=== PATIENT | female | born 1945 | race Caucasian/White ===

== ENCOUNTER 2016-03-26 03:40 | Emergency (ER) ==
[2016-03-26] MEDS ORDERED: XANAX PO ONE ×2 (04:08→04:30)
--- NOTE | 2016-03-26 04:15 | PROVIDER DOCUMENTATION ---
HPI-General Adult - General Chief Complaint: B/P Problems Stated Complaint: elevated bp Time Seen by Provider: 03/26/16 03:48 Source: patient, EMS Allergies/Adverse Reactions: Patient Allergies Allergy/AdvReac Type Severity Reaction Status Date / Time iodine Allergy Severe ANAPHYLAXIS Verified 03/26/16 03:50 codeine [Codeine] Allergy Unknown unknown Verified 03/26/16 03:50 Penicillins Allergy Unknown unknown Verified 03/26/16 03:50 Tetanus Vaccines and Toxoid Allergy Unknown Unknown Verified 03/26/16 03:50 [Tetanus] - History of Present Illness -Gen Adult Nature of Presenting Problems: pt is concerned about her BP. She was noted to have elevated BP at a recent doctor visit and has been monitoring it since. She has noticed that it has been slightly elevated on several occasions. Tonight she checked it and it was about 200 so came to get checked. She has a very mild headache. She feels stressed out and has difficulty sleeping and feels like she can't get enough air. No chest pain. No Nausea. No numbness or weakness. No changes in vision. No leg swelling Review of Systems - Adult - REVIEW OF SYSTEMS - ADULT Constitutional: denies: chills, fever Eyes: denies: discharge, decreased vision, blurred vision, double vision Ears, Nose, Mouth & Throat: denies: ear pain, sinus problem Cardiovascular: reports: palpitations. denies: chest pain, edema Respiratory: reports: shortness of breath. denies: cough, hemoptysis, pleurisy , wheezing Gastrointestinal: denies: abdominal pain, hematemesis, diarrhea, nausea, rectal bleeding, vomiting Integumentary: denies: rash Neurological: denies: headache/migraines, numbness, paresthesia, slurred speech All Other Systems: Reviewed and Negative Past History - Adult - PAST MEDICAL HISTORY-ADULT Review of Records: reports: Old Records Reviewed, Nursing Assessment Review, Medications Reviewed, Social history reviewed & non-contributory. Major Childhood Illnesses: reports: denies history Cardiovascular: reports: denies history Respiratory: reports: denies history Gastrointestinal: reports: denies history Obstetrical/Gynecological: reports: denies history Genitourinary: reports: denies history Musculoskeletal: reports: denies history Neurological: reports: denies history Endocrine/Immune: reports: denies history Other Conditions: reports: denies history - FAMILY HISTORY Family History: reviewed, not pertinent Physical Exam-General - PHYSICAL EXAM-ADULT Initial Vital Signs Reviewed: Yes - CONSTITUTIONAL General Appearance: appears well, alert, no apparent distress - EYES Eyes: pink conjunctivae. negative: scleral icterus - HEAD, EARS, NOSE, MOUTH & THROAT HENMT: normocephalic/atraumatic, pharynx normal - NECK Neck: non-tender, full range of motion, supple, normal inspection - RESPIRATORY Respiratory: chest non-tender, lungs clear, normal breath sounds, no pleuratic chest pain, no respiratory distress, no accessory muscle use - CARDIOVASCULAR Cardiovascular: regular rate, rhythm, no edema, no murmur - GASTROINTESTINAL (ABDOMEN) Abdominal Exam: normal bowel sounds, non tender, soft, no organomegaly, no pulsatile mass - MUSCULOSKELETAL Back Exam: no CVA tenderness, no vertebral tenderness, CVA tenderness Extremity: non-tender, normal inspection, no pedal edema, no calf tenderness - SKIN Integumentary: normal color, normal turgor, warm/dry - NEUROLOGIC Neurologic: rehabilitation medicine physician II-XII nml as tested, grossly normal, no motor/sensory deficits - PSYCHIATRIC Psych/Mental Status: normal mood/affect, normal thought content, normal thought process, oriented x 3 Progress - PLAN OF CARE/RESULTS Progress/Plan/Lab Results: Laboratory Tests 03/26/16 03/26/16 03/26/16 04:13 04:13 04:13 WBC 5.95 RBC 4.23 Hgb 12.1 Hct 38.8 MCV 91.7 MCH 28.6 MCHC 31.2 L RDW Std Deviation 18.7 H Plt Count 266 MPV 10.6 H Immature Gran % (Auto) 0.0 Neut % (Auto) 76.0 H Lymph % (Auto) 13.[address] [place] % (Auto) 7.7 Eos % (Auto) 2.2 Baso % (Auto) 0.2 Immature Gran # (Auto) 0.00 Neut # (Auto) 4.52 Lymph # (Auto) 0.[address] [place] # (Auto) 0.46 Eos # (Auto) 0.13 Baso # (Auto) 0.01 Sodium 141 Potassium 3.6 Chloride 106 Carbon Dioxide 21 L Anion Gap 14 BUN 11 Creatinine 0.8 Estimated GFR/1.73 m2 > 60 BUN/Creatinine Ratio 14 Glucose 104 Calculated Osmolality 281 Calcium 9.1 Total Bilirubin 0.23 AST 15 ALT 12 Alkaline Phosphatase 186 H Troponin T < 0.010 Total Protein 6.7 Albumin 3.9 Globulin 2.8 Albumin/Globulin Ratio 1.4 Orders Category Date Time Status CHEST-2 VIEWS [RAD] Stat Exams 03/26/16 04:15 Taken CBC WITH ELECTRONIC DIFF [HEME] Stat Lab 03/26/16 04:13 Completed CMP [COMPREHENSIVE METABOLIC PANEL] [CHEM] Stat Lab 03/26/16 04:13 Completed TROPONIN T Stat Lab 03/26/16 04:13 Completed Alprazolam [Xanax] Med 03/26/16 04:30 Discontinued 0.25 mg PO NOW ONE EKG [EKG] Stat Ther 03/26/16 03:49 Ordered Vital Signs Temp Pulse Resp BP Pulse Ox 03/26/16 03:50 98.1 F 69 16 189/87 99 iodine Allergy (Severe, Verified 03/26/16 03:50) ANAPHYLAXIS codeine [Codeine] Allergy (Unknown, Verified 03/26/16 03:50) unknown Penicillins Allergy (Unknown, Verified 03/26/16 03:50) unknown Tetanus Vaccines and Toxoid [Tetanus] Allergy (Unknown, Verified 03/26/16 03:50) Unknown Iron Carbonyl/Ascorbic Acid [Icar-C] 1 each PO BID #60 tablet 02/25/16 Omeprazole [Prilosec] 40 mg PO DAILY@0700 #30 capsule 02/25/16 Laboratory 03/26/16 03/26/16 03/26/16 04:13 04:13 04:13 WBC 5.95 RBC 4.23 Hgb 12.1 Hct 38.8 MCV 91.7 MCH 28.6 MCHC 31.2 L RDW Std Deviation 18.7 H Plt Count 266 MPV 10.6 H Immature Gran % (Auto) 0.0 Neut % (Auto) 76.0 H Lymph % (Auto) 13.[address] [place] % (Auto) 7.7 Eos % (Auto) 2.2 Baso % (Auto) 0.2 Immature Gran # (Auto) 0.00 Neut # (Auto) 4.52 Lymph # (Auto) 0.[address] [place] # (Auto) 0.46 Eos # (Auto) 0.13 Baso # (Auto) 0.01 Sodium 141 Potassium 3.6 Chloride 106 Carbon Dioxide 21 L Anion Gap 14 BUN 11 Creatinine 0.8 Estimated GFR/1.73 m2 > 60 BUN/Creatinine Ratio 14 Glucose 104 Calculated Osmolality 281 Calcium 9.1 Total Bilirubin 0.23 AST 15 ALT 12 Alkaline Phosphatase 186 H Troponin T < 0.010 Total Protein 6.7 Albumin 3.9 Globulin 2.8 Albumin/Globulin Ratio 1.4 - EKG 1 Time of EKG reading by physician:: 04:14 EKG Interpretation (*Must complete 3 of following elements*): Normal Rate: 68 Rhythm: sinus [place]: normal QRS: normal [place] Interval: normal ST Wave: normal - XRAY 1 XRAY Study: Chest Impression: Abnormal (mild cardiomegaly, COPD) Departure - Departure Time of Disposition Order: 05:03 DIAGNOSIS: Hypertension Qualifiers: Hypertension type: essential hypertension Qualified Code(s): I10 - Essential ( primary) hypertension Disposition: HOME 01 Certified Medical Emergency: Emergent Condition: Good Additional Instructions: quit smoking, take a clonidine BP pill if your top number is over 180 and give it 2 hours to work. Follow up with your physician as scheduled and continue to check your BP once a day ED Follow Up Instructions: You have been treated by a care provider in the Emergency Department. These instructions are being provided to you so you can have an understanding of how to care for yourself upon discharge. Upon discharge from the Emergency Department, you are responsible for making arrangements for follow-up care by a physician of your choice. Take all prescribed medications as directed. Return to the Emergency Department immediately for any new or worsening symptoms. You may call the Physician Referral phone number at [phone] to obtain a list of Physicians who are taking new patients. Prescriptions: Clonidine HCl 0.1 mg PO TID PRN #30 tablet PRN Reason: hypertension
[2016-03-26 04:25] LABS: MANUAL DIFF NEEDED? NO
[2016-03-26 04:27] LABS: BASO% 0.2 % (0.0-0.8); EOS# 0.13 X1000 (0.0-0.7); EOS% 2.2 % (0.0-10.0); HEMATOCRIT 38.8 % (37.0-47.0); HEMOGLOBIN 12.1 g/dL (12.0-16.0); LYMPH# 0.83 X1000 (1.2-3.4); LYMPH% 13.9 % (20.5-51.1); MCH 28.6 PG (27-31); MCHC 31.2 g/dL (33-37); MCV 91.7 FL (81-99); MONO# 0.46 X1000 (0.11-0.59); MONO% 7.7 % (1.7-9.3); MPV 10.6 FL (7.4-10.4); PLT 266 X1000 (130-400); RBC 4.23 XMIL (4.2-5.4)
[2016-03-26 04:50] LABS: AGAP 14; ALBUMIN 3.9 g/dL (3.5-5.0); ALKALINE PHOSPHATASE 186 U/L (32-104); BUN 11 mg/dL (8-22); CALCIUM 9.1 mg/dL (8.8-10.2); CHLORIDE 106 mmol/L (98-107); COSMO 281; GOT 15 U/L (10-30); GPT 12 U/L (10-36); POTASSIUM 3.6 mmol/L (3.5-5.1); SODIUM 141 mmol/L (136-145); TCO2 21 mmol/L (25-35); TOTAL BILIRUBIN 0.23 mg/dL (0.20-1.00); TOTAL PROTEIN 6.7 g/dL (6.3-8.3)
[2016-03-26 05:50] VITALS: BP 163/81
--- NOTE | 2016-03-26 07:32 | Diag Imaging Result Document ---
PROCEDURE NAME: CHEST-2 VIEWS - 03/26/2016 CHEST X-RAY, 2 VIEWS: COMPARISON: 02/23/2016. FINDINGS: The lungs are normally expanded and clear. Heart size and mediastinal contours are normal. No pneumothorax or pleural effusion. IMPRESSION: Negative exam.
== END 2016-03-26 05:50 | disposition home or self-care (01) ==
LOC: EDBD → ED 03:40
DX: I10 Essential (primary) hypertension (principal); R51 Headache; R00.2 Palpitations; R06.02 Shortness of breath; Z79.899 Other long term (current) drug therapy
CPT/HCPCS: 71020; 80053; 84484; 85025; 93005; 99283

== ENCOUNTER 2018-10-31 17:52 | Inpatient (IN) ==
--- NOTE | 2018-10-31 18:47 | Diag Imaging Result Doc PS360 ---
CHEST-2 VIEWS - 10/31/2018 INDICATION: cough congestion fever x 4-5 days COMPARISON: None FINDINGS: There is advanced COPD. No infiltrates or edema. No pneumothorax or pleural effusion. Heart size and pulmonary vascularity is normal. No compression fractures in the spine. IMPRESSION: Advanced COPD. Electronically signed by Rajesh Hernandez 10/31/2018 6:44 PM
[2018-10-31 19:43] LABS: OCCULT BLOOD 1 NEGATIVE (NEGATIVE)
[2018-10-31 20:06] LABS: BASO# 0.04 X1000 (0.0-0.2); BASO% 0.4 % (0.0-0.8); EOS# 0.08 X1000 (0.0-0.7); EOS% 0.8 % (0.0-10.0); HEMATOCRIT 23.7 % (37.0-47.0); IMM GRAN# 0.04 X1000 (0.0-0.04); IMM GRAN% 0.4 % (0.0-0.5); LYMPH# 1.11 X1000 (1.2-3.4); LYMPH% 10.9 % (20.5-51.1); MCH 16.7 PG (27-31); MCHC 24.9 g/dL (33-37); MCV 66.9 FL (81-99); MONO# 0.58 X1000 (0.11-0.59); MONO% 5.7 % (1.7-9.3); MPV 9.8 FL (7.4-10.4); NEUT# 8.34 X1000 (1.4-6.5); NEUT% 81.8 % (42.2-75.2); PLT 571 X1000 (130-400); RBC 3.54 XMIL (4.2-5.4); RDW 22.7 % (11.5-14.5); WBC 10.19 X1000 (4.8-10.8)
[2018-10-31 20:25] LABS: ALBUMIN 4.1 g/dL (3.5-5.0); CALCIUM 8.6 mg/dL (8.8-10.2); POTASSIUM 2.7 mmol/L (3.5-5.1); TOTAL BILIRUBIN 0.2 mg/dL (0.20-1.00); TOTAL PROTEIN 7.3 g/dL (6.3-8.3)
--- NOTE | 2018-10-31 20:41 | PROVIDER DOCUMENTATION ---
This chart was entered by Sherrill Patterson Scribe, acting as scribe for Rio Ontiveros MD. HPI-Respiratory General - General Chief Complaint: Cough Stated Complaint: COUCHING & BACK PAIN Time Seen by Provider: 10/31/18 19:40 Source: patient Allergies/Adverse Reactions: Patient Allergies Allergy/AdvReac Type Severity Reaction Status Date / Time Penicillins AdvReac HIVES Verified 10/31/18 18:07 Home Medications: Home Medication List Medication Instructions Recorded Confirmed Last Taken Type Unobtainable [Home Meds 10/31/18 10/31/18 Unknown History Unobtainable] - History of Present Illness-Resp Nature of Presenting Problem: 73yof presents to ED cc cough, hoarseness and diarrhea. Pt reports she has been having issues for a long time but her was on Hospice and she couldn't le ave him but he last week. Pt is A&Ox3 and nontoxic in appearance. Quality of Pain: reports: none Severity in ED: reports: mild Onset/Duration: reports: gradual Timing: reports: still present Cough Quality/Degree: reports: dry cough Episode Frequency: frequent episodes Current Respiratory Medication Therapy: Initiated see nurses note Modifying Factors: improves with: nothing Associated Symptoms: reports: cough Similar Symptoms Previously?: Yes Recently seen or treated by another doctor?: No Review of Systems - Adult - REVIEW OF SYSTEMS - ADULT Constitutional: reports: see HPI, fatique. denies: chills, fever Eyes: reports: no symptoms reported Ears, Nose, Mouth & Throat: reports: see HPI, hoarseness. denies: throat pain Cardiovascular: reports: no symptoms reported Respiratory: reports: see HPI, chronic cough. denies: shortness of breath, wheezing Gastrointestinal: reports: see HPI, diarrhea. denies: abdominal pain, nausea, vomiting Genitourinary: reports: no symptoms reported Musculoskeletal: reports: no symptoms reported Integumentary: reports: no symptoms reported Neurological: reports: no symptoms reported Psychiatric: reports: no symptoms reported Endocrine: reports: no symptoms reported Hematologic/Lymphatic: reports: no symptoms reported Allergic/Immunologic: reports: no symptoms reported All Other Systems: Reviewed and Negative Past History - Adult - PAST MEDICAL HISTORY-ADULT Review of Records: reports: Nursing Assessment Review, Medications Reviewed, Social history reviewed & non-contributory. Major Childhood Illnesses: reports: denies history Cardiovascular: reports: denies history Respiratory: reports: denies history Gastrointestinal: reports: denies history Obstetrical/Gynecological: reports: denies history Genitourinary: reports: denies history Musculoskeletal: reports: denies history Neurological: reports: denies history Endocrine/Immune: reports: denies history Other Conditions: reports: denies history - IMMUNIZATION STATUS Childhood Immunizations: See Nurse Assessment Flu Vaccine: See Nurse Assessment - FAMILY HISTORY Family History: reviewed, not pertinent - SOCIAL HISTORY Smoking: cigarettes, greater than 1 pack/day Provider spent 3-5 mins advising pt. on dangers of tobacco.: Discussed manners to quit use, and f/u contacts for add'l counseling. Physical Exam-General - PHYSICAL EXAM-ADULT Initial Vital Signs Reviewed: Yes - CONSTITUTIONAL General Appearance: appears well, alert, no apparent distress, thin. negative: anxious, combative - EYES Eyes: PERRL/EOMI, pale conjunctivae. negative: pink conjunctivae (very white), photophobia - HEAD, EARS, NOSE, MOUTH & THROAT HENMT: normocephalic/atraumatic, moist mucous membranes, hearing deficit (menieres disease), other (uvula, midline; perlech in both corners of mouth; beefy/red/slick tongue) - NECK Neck: non-tender, full range of motion, supple, normal inspection. negative: C-spine tenderness - RESPIRATORY Respiratory: chest non-tender, lungs clear, normal breath sounds, no pleuratic chest pain, no respiratory distress, no accessory muscle use. negative: crackles, rales, rhonchi, stridor, wheezing - CARDIOVASCULAR Cardiovascular: normal peripheral pulses, regular rate, rhythm, no edema, no gallop, no JVD, no murmur. negative: bradycardia, tachycardia - GASTROINTESTINAL (ABDOMEN) Abdominal Exam: normal bowel sounds, non tender, soft, no organomegaly, no pulsatile mass. negative: distended, guarding, rigid, rebound, tenderness, hernia, mass - LYMPHATIC Lymphatic: no adenopathy. negative: enlargement, striations, streaking - MUSCULOSKELETAL Back Exam: normal inspection, no CVA tenderness, no vertebral tenderness. negative: ecchymosis, swelling Extremity: normal range of motion, non-tender, normal gait, normal inspection, no pedal edema, no calf tenderness, normal capillary refill, pelvis stable. negative: deformity, erythema - SKIN Integumentary: normal color, normal turgor, warm/dry. negative: cyanosis, diaphoresis, ecchymosis, erythema, jaundice, rash - NEUROLOGIC Neurologic: import clerk II-XII nml as tested, grossly normal, no motor/sensory deficits. negative: facial droop, focal weakness, motor weakness, sensory deficit - PSYCHIATRIC Psych/Mental Status: normal mood/affect, normal thought content, normal thought process, oriented x 3. negative: disoriented x 3, anxious, disheveled, depressed affect Progress - PLAN OF CARE/RESULTS Progress/Plan/Lab Results: Vital Signs - 8 hr 10/31/18 18:01 Pulse Rate 107 H Respiratory Rate 18 Blood Pressure 148/72 O2 Sat by Pulse Oximetry 99 Laboratory Results - last 24 hr 10/31/18 10/31/18 10/31/18 19:30 19:47 19:47 WBC 10.19 RBC 3.54 L Hgb 6.0 L Hct 23.7 L MCV 66.9 L MCH 16.7 L MCHC 24.9 L RDW Std Deviation 22.7 H Plt Count 571 H MPV 9.8 Immature Gran % (Auto) 0.4 Neut % (Auto) 81.8 H Lymph % (Auto) 10.9 L [place] % (Auto) 5.7 Eos % (Auto) 0.8 Baso % (Auto) 0.4 Immature Gran # (Auto) 0.04 Neut # (Auto) 8.34 H Lymph # (Auto) 1.11 L [place] # (Auto) 0.58 Eos # (Auto) 0.08 Baso # (Auto) 0.04 Segmented Neutrophils Not Reportable Sodium 137 Potassium 2.7 L Chloride 98 Carbon Dioxide 25 Anion Gap 14 BUN 8 Creatinine 1.0 H Estimated GFR/1.73 m2 55 BUN/Creatinine Ratio 8 Glucose 102 Calculated Osmolality 272 Calcium 8.6 L Total Bilirubin 0.20 AST 16 ALT 8 L Alkaline Phosphatase 190 H Total Protein 7.3 Albumin 4.1 Globulin 3.0 Albumin/Globulin Ratio 1.0 Stool Occult Blood NEGATIVE Orders Category Date Time Status CHEST-2 VIEWS [RAD] Stat Exams 10/31/18 18:08 Completed CBC WITH ELECTRONIC DIFF [HEME] Stat Lab 10/31/18 19:47 Completed COMPREHENSIVE METABOLIC PANEL [CHEM] Stat Lab 08/12/19 19:47 Completed OCCULT BLOOD DIAG 1-[address] Stat Lab 10/31/18 19:30 Completed Transfer/Admit Order [TRANSFER] Routine Transfer 10/31/18 20:36 Ordered Result Diagrams: 10/31/18 19:47 10/31/18 19:47 - XRAY 1 XRAY: Bilateral XRAY Study: Chest Impression: See EMR Report (IMPRESSION: Advanced COPD. Electronically signed by Rajesh Hernandez 10/31/2018 6:44 PM) Departure - Departure Date of Disposition Decision: 10/31/18 Time of Disposition Decision: 20:40 DIAGNOSIS: Anemia Disposition: ADMITTED INPATIENT 09 Certified Medical Emergency: Emergent Condition: Stable Additional Freetext Instructions: ED Follow Up Instructions: You have been treated by a care provider in the Emergency Department. These instructions are being provided to you so you can have an understanding of how to care for yourself upon discharge. Upon discharge from the Emergency Department, you are responsible for making arrangements for follow-up care by a physician of your choice. Take all prescribed medications as directed. Return to the Emergency Department immediately for any new or worsening symptoms. You may call the Physician Referral phone number at [phone] to obtain a l ist of Physicians who are taking new patients. Referrals and Follow-Ups: None,PCP [Primary Care Provider] - - Critical Care Note This patient required my direct & personal management of CC.: No Attestation - Physician/ ANA Attestation Patient care was provided by Advanced Practice Provider:: No The physician spent face to face time with patient:: Yes Advanced Practice Provider documentation review:: Supervising physician onsite and consulted in the evaluation and care of this patient. The physician did have a face to face encounter with the patient. This chart was documented by the indicated scribe, (Sherrill Patterson Scribe) and accurately reflects the services I performed and decisions made by me, Rio Ontiveros MD, as attested by the provider's signature.
[2018-10-31] MEDS ORDERED: NS 1,000 ML IV ONE (21:27)
[2018-10-31 21:58] LABS: IRON SATURATION 4 %; TIBC 325 ug/dL; TOTAL IRON 12 ug/dL (49-151); UNBOUND IRON 313 ug/dL (112-346)
[2018-10-31] MEDS: DUONEB (A & A) INH SCH (22:58)
[2018-11-01 01:22] LABS: BILIRUBIN URINE NEGATIVE (NEGATIVE); BLOOD URINE NEGATIVE (NEGATIVE); CLARITY CLEAR (CLEAR); COLOR YELLOW; GLUCOSE URINE NEGATIVE (NEGATIVE); KETONE URINE NEGATIVE (NEGATIVE); LEUKOCYTES URINE NEGATIVE (NEGATIVE); NITRITE URINE NEGATIVE (NEGATIVE); PH URINE 6.5; PROTEIN URINE NEGATIVE (NEGATIVE); SP GRAVITY URINE 1.005; UROBILINOGEN URINE NORMAL
[2018-11-01 01:23] LABS: URINE BACTERIA NEGATIVE /HFP; URINE EPITHELIAL CELLS <10 /HPF (<10); URINE RBC <10 /HPF (<10); URINE SOURCE CLEAN CATCH; URINE WBC <10 /HPF (<10)
[2018-11-01] MEDS: DUONEB (A & A) INH SCH ×6 (02:44→22:59)
[2018-11-01] MEDS: TYLENOL PO PRN ×2 (07:44→14:57)
[2018-11-01 07:53] LABS: AGAP 11; ALBUMIN 3.8 g/dL (3.5-5.0); ALKALINE PHOSPHATASE 171 U/L (32-104); BUN 7 mg/dL (8-22); CALCIUM 8.1 mg/dL (8.8-10.2); CHLORIDE 103 mmol/L (98-107); COSMO 277; CREATININE 0.9 mg/dL (0.5-0.9); ESTIMATED GFR > 60; GLUCOSE 96 mg/dL (70-104); GOT 17 U/L (10-30); GPT 7 U/L (10-36); POTASSIUM 2.9 mmol/L (3.5-5.1); SODIUM 140 mmol/L (136-145); TCO2 26 mmol/L (25-35); TOTAL PROTEIN 6.5 g/dL (6.3-8.3)
[2018-11-01] MEDS ORDERED: DUONEB (A & A) INH PRN (08:39)
[2018-11-01] MEDS ORDERED: ZOFRAN IV PRN (08:39)
[2018-11-01] MEDS ORDERED: TYLENOL PO PRN (08:39)
[2018-11-01] MEDS: ROCEPHIN 1 GM in NS 50 ML IV SCH (08:58)
[2018-11-01 09:20] LABS: HEMOGLOBIN 6.5 g/dL (12.0-16.0); MCH 17.8 PG (27-31); MCV 68.5 FL (81-99); MPV 10.1 FL (7.4-10.4); RBC 3.65 XMIL (4.2-5.4); RDW 22.4 % (11.5-14.5); WBC 6.31 X1000 (4.8-10.8)
--- NOTE | 2018-11-01 10:23 | HISTORY AND PHYSICAL ---
PRIMARY CARE PHYSICIAN: None. CHIEF COMPLAINT: Fatigue, no energy, shortness of breath, some diarrhea and a cough that have been present for some time and have progressively worsened. HISTORY OF PRESENTING ILLNESS: This is a 73-year-old female who presents to [facility] ER with complaints of generalized weakness, fatigue, no energy, some mild shortness of breath, diarrhea that have been present for quite a while, but she states that her was on hospice care and she had been taking care of him, but that he passed last week, and the day after his is when the symptoms really worsened and she came in for evaluation. When she arrived, her hemoglobin was noted to be 6, hematocrit 23.7. Her stool for occult blood was negative and she denies any black or tarry stools. Her potassium was also noted to be 2.7. Her iron studies showed iron of 12, a TIBC of 325, so she was admitted for further evaluation and treatment. PAST MEDICAL HISTORY: A bleeding stomach ulcer. PAST SURGICAL HISTORY: Cholecystectomy and hysterectomy. FAMILY HISTORY: Reviewed and noncontributory. SOCIAL HISTORY: She is currently living alone, smokes a half a pack of cigarettes a day and has done so for the past 25 years, and denies any alcohol or illicit drug use. ALLERGIES: Penicillin. HOME MEDICATIONS: She does not take any medications on a routine basis. LABORATORY DATA: Showed a white blood cell count of 10.19, hemoglobin 6.0, hematocrit 23.7, platelets 571,000. Sodium 137, potassium 2.7, chloride 98, CO2 25, BUN of 8, creatinine 1, glucose 102. Iron of 12, TIBC 325. Urinalysis was negative. Stool for occult blood was negative. Chest x-ray showed advanced COPD. REVIEW OF SYSTEMS: She denied any fever, chills, blurred vision, dizziness. She was positive for generalized weakness, fatigue no energy, shortness of breath, cough. Denied any abdominal pain, constipation. She did have some diarrhea, denied any burning or hurting with urination. PHYSICAL EXAMINATION: VITAL SIGNS: On arrival, she had a temperature of 98.5 degrees, pulse 107, respirations 18, blood pressure 148/72, and she was saturating 99% on room air. GENERAL: This is a 73-year-old female who is lying in the bed and answers questions appropriately. HEENT: Normocephalic, atraumatic. Normal ENT inspection. Oropharynx and nares are clear. EYES: Pupils are equal, round, and reactive to light and accommodation. Extraocular movements are intact. NECK: Normal inspection. Normal range of motion. LUNGS: Clear to auscultation bilaterally with equal lung expansion and chest wall movement. HEART: With regular rate and rhythm. No murmurs, rubs, or gallops. ABDOMEN: Soft, nontender, nondistended. Bowel sounds are present x4 quadrants. MUSCULOSKELETAL: She had 5/5 strength x4 extremities. NEUROLOGICAL: The cranial nerves 2-12 appear grossly intact. ASSESSMENT: 1. Iron deficiency anemia. 2. Hypokalemia. 3. Tobacco abuse. 4. Acute chronic obstructive pulmonary disease exacerbation PLAN: She was admitted to the medical unit. She was transfused with 1 unit of packed red blood cells. We will rechecking a CBC this morning to see if she will require any further blood transfusions. She was placed on a regular diet, DuoNeb q.4 hours and q.2 p.r.n., Rocephin 1 gram IV q.24., and we will recheck a CBC and BMP in the a.m. and further orders after seen by attending. Dictated by KRUNAL Landon for Jack Zhang MD cc: KRUNAL Landon MD
[2018-11-01] MEDS: ZOFRAN IV PRN (14:57)
[2018-11-01] MEDS: ROBITUSSIN PO PRN ×2 (15:25→20:35)
[2018-11-01] MEDS ORDERED: NS 500 ML IV ONE (17:43)
--- NOTE | 2018-11-01 19:00 | HISTORY AND PHYSICAL ---
ADDENDUM: Patient seen and examined by myself. Full note dictated and discussed with nurse practitioner. Patient presented to the hospital with cough and shortness of breath. She was noted to have anemia. We will attempt to type, cross, and transfuse. We will follow her blood pressures. She is heme negative, so it certainly does not appear as though she is bleeding. We will continue to follow. cc: Jack Zhang MD
[2018-11-01] MEDS ORDERED: KLOR-CON PO ONE (20:14)
[2018-11-01] MEDS: NORCO-5 PO PRN (20:35)
[2018-11-02] MEDS: NORCO-5 PO PRN ×3 (00:38→20:59)
[2018-11-02] MEDS: DUONEB (A & A) INH SCH ×6 (02:57→23:48)
[2018-11-02 05:30] LABS: BASO% 0.5 % (0.0-0.8); EOS% 1.8 % (0.0-10.0); HEMATOCRIT 26.2 % (37.0-47.0); HEMOGLOBIN 7.2 g/dL (12.0-16.0); IMM GRAN% 0.4 % (0.0-0.5); LYMPH% 20.6 % (20.5-51.1); MCH 19.2 PG (27-31); MCHC 27.5 g/dL (33-37); MCV 69.9 FL (81-99); MONO% 9.8 % (1.7-9.3); MPV 10.2 FL (7.4-10.4); NEUT% 66.9 % (42.2-75.2); PLT 432 X1000 (130-400); RBC 3.75 XMIL (4.2-5.4); RDW 22.5 % (11.5-14.5); WBC 5.49 X1000 (4.8-10.8)
[2018-11-02 05:31] LABS: BASO# 0.03 X1000 (0.0-0.2); IMM GRAN# 0.02 X1000 (0.0-0.04); LYMPH# 1.13 X1000 (1.2-3.4); MONO# 0.54 X1000 (0.11-0.59); NEUT# 3.67 X1000 (1.4-6.5)
[2018-11-02 06:15] LABS: CALCIUM 8.1 mg/dL (8.8-10.2); POTASSIUM 3.1 mmol/L (3.5-5.1)
[2018-11-02] MEDS ORDERED: KLOR-CON PO ONE (06:59)
[2018-11-02] MEDS ORDERED: ZOFRAN IV PRN (08:27)
[2018-11-02] MEDS ORDERED: TYLENOL PO PRN (08:27)
[2018-11-02] MEDS: ROCEPHIN 1 GM in NS 50 ML IV SCH (09:09)
[2018-11-02] MEDS: SOLU-MEDROL IV SCH ×2 (09:10→17:19)
--- NOTE | 2018-11-02 09:37 | Diag Imaging Result Doc PS360 ---
CHEST-2 VIEWS - 11/02/2018 INDICATION: hypoxia COMPARISON: 10/31/2018 FINDINGS: Heart size is mildly enlarged. Pulmonary vascularity is top normal. Stable hyperexpanded lungs. No infiltrates or edema. No pneumothorax or pleural effusion. IMPRESSION: Mild cardiomegaly. COPD. Electronically signed by Rajesh Hernandez 11/02/2018 9:35 AM
[2018-11-02] MEDS: ROBITUSSIN PO PRN ×2 (17:19→20:59)
[2018-11-02] MEDS: ZOFRAN IV PRN (17:19)
--- NOTE | 2018-11-02 19:01 | PROGRESS NOTE ---
DATE: 11/02/2018 SUBJECTIVE: The patient notes overall that she is feeling okay. She is still very tired, fatigued, has a cough and occasional congestion. She is unable to get out of bed without assistance currently. OBJECTIVE: Temperature, she is afebrile. Vital signs stable. Blood pressure is stable, respiratory 20.General: Patient is very pleasant. She is in no respiratory distress. HEENT: Normocephalic. Neck: Supple. Cardiovascular: Regular rate. Chest: Clear. Abdomen: Soft, nondistended. Extremities: Moves all extremities. Neurologic: No changes. ASSESSMENT/PLAN: 1. Iron deficiency anemia. Hemoglobin and hematocrit is more stable at 7 and 26. 2. Hypokalemia. Potassium is 3.2. We will continue to replace. 3. Chronic tobacco abuse. 4. Chronic obstructive pulmonary disease with exacerbation. We will add steroids, breathing treatments, and continue oxygen. Check a chest x-ray. 5. Adult failure to thrive with generalized weakness. We will get physical therapy involved and follow. cc: Jack Zhang MD
[2018-11-03] MEDS: SOLU-MEDROL IV SCH ×3 (00:26→16:01)
[2018-11-03] MEDS: ROBITUSSIN PO PRN (02:35)
[2018-11-03] MEDS: DUONEB (A & A) INH SCH ×6 (03:38→23:02)
[2018-11-03] MEDS: ROCEPHIN 1 GM in NS 50 ML IV SCH (09:12)
[2018-11-03] MEDS: NORCO-5 PO PRN (16:01)
--- NOTE | 2018-11-03 18:52 | PROGRESS NOTE ---
DATE: 11/03/2018 SUBJECTIVE: Patient notes that breathing mares she is doing better, although she is still very weak and fatigued. She is not able to get out of bed without any assistance. OBJECTIVE: Vital signs: Temperature 98, pulse 100, respiratory rate 18, BP 162/85. General: Patient is very pleasant. She is currently in no respiratory distress. HEENT: Normocephalic. Neck: Supple. Cardiovascular: Regular rate. Chest: Clear. Abdomen: Soft. Extremities: Moves all extremities. Neurologic: No focal changes. ASSESSMENT: 1. Chronic obstructive pulmonary disease with mild exacerbation. 2. Adult failure to thrive. 3. Anemia of chronic disease, improved. 4. Hypokalemia, resolved. 5. Chronic tobacco abuse. 6. Chronic situational anxiety and depression. PLAN: We will continue patient in the hospital. Continue physical therapy. I expect that she will need rehab, which she should be ready for tomorrow. We will wean her steroids. Further orders as needed. cc: Jack Zhang MD
[2018-11-04] MEDS: SOLU-MEDROL IV SCH ×2 (00:14→07:59)
[2018-11-04] MEDS: DUONEB (A & A) INH SCH ×3 (04:29→11:20)
[2018-11-04 06:45] LABS: HEMATOCRIT 27.6 % (37.0-47.0); HEMOGLOBIN 7.3 g/dL (12.0-16.0); MCH 18.9 PG (27-31); MCHC 26.4 g/dL (33-37); MCV 71.5 FL (81-99); MPV 10.7 FL (7.4-10.4); RBC 3.86 XMIL (4.2-5.4); RDW 23.6 % (11.5-14.5); WBC 10.9 X1000 (4.8-10.8)
[2018-11-04 06:54] LABS: ALBUMIN 3.6 g/dL (3.5-5.0); CALCIUM 8.5 mg/dL (8.8-10.2); CREATININE 1.1 mg/dL (0.5-0.9); MAGNESIUM 1.8 mg/dL (1.5-2.7); POTASSIUM 3.9 mmol/L (3.5-5.1); TOTAL BILIRUBIN 0.2 mg/dL (0.20-1.00); TOTAL PROTEIN 6.2 g/dL (6.3-8.3)
[2018-11-04 07:51] VITALS: BP 126/62
[2018-11-04] MEDS ORDERED: OMNICEF PO SCH (09:00)
--- NOTE | 2018-11-04 11:09 | DISCHARGE SUMMARY ---
ADMISSION DATE: 11/01/2018 DISCHARGE DATE: 11/04/2018 PRIMARY CARE PHYSICIAN: None. ADMISSION DIAGNOSES: 1. Iron deficiency anemia. 2. Hypokalemia. 3. Tobacco abuse. 4. Acute chronic obstructive pulmonary disease exacerbation. DISCHARGE DIAGNOSES: 1. Iron deficiency anemia, improved. 2. Chronic obstructive pulmonary disease with mild exacerbation. 3. Adult failure to thrive. 4. Chronic tobacco abuse. 5. Hypokalemia, resolved. SUMMARY OF FINDINGS: This is a 73-year-old female who presented to the ER with complaints of generalized weakness fatigue and no energy with mild shortness of breath and diarrhea that had been present for quite a while. States that her had been on hospice care. She had been taking care of him, but he last week. The day after his is when her symptoms really worsened and so she came in for evaluation. On arrival, her hemoglobin and hematocrit was noted to be 6 and 23.7. Stool was negative for occult blood. She denied having any black tarry or melena stools. She also was noted to have a low potassium of 2.7. Her iron study showed an iron of 12 and TIBC of 325. She was admitted, given 2 units of packed red blood cells. H H is up to 7.3 and 27.6. She was placed on DuoNeb q.4 hours routinely and q.2 p.r.n., initially placed on Rocephin 1 gram IV q.24. Has been changed over to cefdinir 300 p.o. b.i.d. She was placed on steroids to taper and it is now felt that she can safely be discharged to rehab today. DISCHARGE MEDICATIONS: Will include 1. Medrol Dosepak to take as directed. 2. [place] 5 1 p.o. q.4 hours p.r.n. 3. Tylenol 650 mg p.o. q.6 hours p.r.n. 4. DuoNeb q.4-6 hours p.r.n. 5. Prevacid 30 mg p.o. daily. Has completed her antibiotics. FOLLOW-UP: She will need to follow up with her primary care physician and obtain one when she completes her rehab stay. TIME SPENT: 35 minutes. Dictated by KRUNAL Landon for Jack Zhang MD cc: KRUNAL Landon MD
--- NOTE | 2018-11-05 02:53 | DISCHARGE SUMMARY ---
ADMISSION DATE: 11/01/2018 DISCHARGE DATE: 11/04/2018 ADDENDUM: Patient seen and examined by myself. Full note dictated and discussed with nurse practitioner. Patient will be discharged to rehab. She does have a mild COPD exacerbation. She will continue breathing treatments. She had hypokalemia that was replaced and anemia of chronic disease that is stable. cc: Jack Zhang MD
== END 2018-11-04 12:00 | DRG 812 ==
LOC: P.MEDSURG 17:52 → P.ED 17:52 → MERGE 11-01 15:12
PROVIDERS: ATTEND Family Medicine

== ENCOUNTER 2019-01-11 15:04 | Inpatient (IN) ==
[2019-01-11 15:39] LABS: BASO# 0.02 X1000 (0.0-0.2); BASO% 0.3 % (0.0-0.8); EOS# 0.23 X1000 (0.0-0.7); EOS% 3.6 % (0.0-10.0); HEMATOCRIT 22.6 % (37.0-47.0); IMM GRAN# 0.04 X1000 (0.0-0.04); IMM GRAN% 0.6 % (0.0-0.5); LYMPH# 0.92 X1000 (1.2-3.4); LYMPH% 14.6 % (20.5-51.1); MCH 17.8 PG (27-31); MCHC 25.2 g/dL (33-37); MCV 70.4 FL (81-99); MONO# 0.49 X1000 (0.11-0.59); MONO% 7.8 % (1.7-9.3); MPV 10.8 FL (7.4-10.4); NEUT# 4.61 X1000 (1.4-6.5); NEUT% 73.1 % (42.2-75.2); PLT 532 X1000 (130-400); RBC 3.21 XMIL (4.2-5.4); RDW 21.4 % (11.5-14.5); WBC 6.31 X1000 (4.8-10.8)
[2019-01-11 15:40] LABS: HEMOGLOBIN 5.7 g/dL (12.0-16.0)
[2019-01-11 15:43] LABS: INR 1.07; PROTIME 14.1 Seconds (11.0-16.0)
[2019-01-11 15:44] LABS: PTT 38.1 Seconds (22.3-41.8)
[2019-01-11 16:09] LABS: AGAP 14; ALB/GLOB RATIO 1.2; ALBUMIN 3.9 g/dL (3.5-5.0); ALKALINE PHOSPHATASE 202 U/L (32-104); BUN 12 mg/dL (8-22); CALCIUM 8.1 mg/dL (8.8-10.2); CHLORIDE 103 mmol/L (98-107); COSMO 274; CREATININE 1.1 mg/dL (0.5-0.9); ESTIMATED GFR 49; GLUCOSE 101 mg/dL (70-104); GOT 9 U/L (10-30); GPT 5 U/L (10-36); POTASSIUM 3.3 mmol/L (3.5-5.1); SODIUM 137 mmol/L (136-145); TCO2 20 mmol/L (25-35); TOTAL BILIRUBIN < 0.15 mg/dL (0.20-1.00); TOTAL PROTEIN 7.1 g/dL (6.3-8.3)
--- NOTE | 2019-01-11 16:26 | PROVIDER DOCUMENTATION ---
HPI-General Adult - General Chief Complaint: Abnormal Lab[s] Stated Complaint: DR KUNZ REF--HGB LOW Time Seen by Provider: 01/11/19 15:55 Source: patient Allergies/Adverse Reactions: Patient Allergies Allergy/AdvReac Type Severity Reaction Status Date / Time iodine Allergy Severe ANAPHYLAXIS Verified 01/11/19 16:40 codeine [Codeine] Allergy Unknown unknown Verified 01/11/19 16:40 Penicillins Allergy Unknown unknown Verified 01/11/19 16:40 Tetanus Vaccines and Toxoid Allergy Unknown Unknown Verified 01/11/19 16:40 [Tetanus] Home Medications: Home Medication List Medication Instructions Recorded Confirmed Last Taken Type Iron Carbonyl/Ascorbic Acid 1 each PO BID #60 tablet 02/25/16 01/11/19 01/10/19 Rx [Icar-C] Lansoprazole [Prevacid] 30 mg PO DAILY 11/01/18 01/11/19 Unknown History Acetaminophen [Tylenol] 650 mg PO Q6H PRN PRN tab 11/04/18 01/11/19 Unknown Rx Albuterol 2.5MG/Ipratrop 0.5MG 3 ml INH Q4-6H PRN PRN #0 neb 11/04/18 01/11/19 Unknown Rx [Duoneb (A & A)] Hydrocodone/APAP 5 mg/325 mg 1 ea PO Q4H PRN PRN #10 tab 11/04/18 01/11/19 01/11/19 Rx [[place]-5] 2.5mg Lisinopril 10 mg PO DAILY 01/11/19 01/11/19 01/11/19 History - History of Present Illness -Gen Adult Nature of Presenting Problems: 73 yof presents on referral of Dr. Kunz for anemia. She has required previous blood transfusions in the past most recent was 8 wks ago, she reports generalized weakness and feeling cold. Denies CP, SOB, N/V/D, blood in stool or vomit and black stools. Location of Pain/Injury: reports: none Pain Radiation: reports: no radiation Quality of Pain: reports: none Severity: reports: moderate Onset/Duration: reports: unsure Timing: reports: still present Context/Activities at Onset: reports: none Modifying Factors: improves with: nothing Associated Symptoms: reports: weakness Similar Symptoms Previously?: No Recently seen or treated by another doctor?: No Review of Systems - Adult - REVIEW OF SYSTEMS - ADULT Constitutional: reports: no symptoms reported. denies: see HPI, chills, fever, fatique, night sweats, weight gain, weight loss, other Eyes: reports: no symptoms reported. denies: see HPI, discharge, dry eyes, d ecreased vision, blurred vision, double vision, eye pain, redness, other Ears, Nose, Mouth & Throat: reports: no symptoms reported. denies: see HPI, ear discharge, ear pain, hearing loss, tinnitus, epistaxis, sinus problem, nose pain, loose teeth, mouth/dental pain, mouth swelling, hoarseness, throat pain, throat swelling, other Cardiovascular: reports: no symptoms reported. denies: see HPI, chest pain, edema, heart murmur, irregular heart rate, orthopnea, palpitations, poor circulation, PND, syncope, other Respiratory: reports: no symptoms reported. denies: see HPI, chronic cough, cough, dyspnea on exertion, excessive sputum production, hemoptysis, pleurisy, shortness of breath, wheezing, other Gastrointestinal: reports: no symptoms reported Genitourinary: reports: no symptoms reported. denies: see HPI, dysuria, discharge, frequency, flank pain, frequent UTI's, hematuria, hesitency, incontinence, urinary retention, urgency, other Musculoskeletal: reports: muscle weakness. denies: no symptoms reported, see HPI, bone pain, back pain, frequent leg cramps, joint pain, joint swelling, muscle aches, neck pain, other Integumentary: reports: no symptoms reported. denies: see HPI, hives, hair loss, itching, mole changes, nail changes, rash, skin sores/ulcer, skin thickening, other Neurological: reports: no symptoms reported. denies: see HPI, ataxia, dizziness/vertigo, headache/migraines, loss of balance, numbness, paresthesia, seizure, slurred speech, syncope, tremors, other Psychiatric: reports: no symptoms reported. denies: see HPI, anxiety, anti- depressant use, alcohol/drug dependence, depression, emotional problems, insomnia, panic attacks, suicidal thoughts, other Endocrine: reports: no symptoms reported. denies: see HPI, change in skin pi gment, excessive sweating, goiter, cold intolerance, heat intolerance, increased hunger, increased thirst, polyuria, other Hematologic/Lymphatic: reports: no symptoms reported. denies: see HPI, blood clots, easy bruising, low blood count, lymphedema, prolonged bleeding, swollen lymph nodes, transfusions, other Allergic/Immunologic: reports: no symptoms reported. denies: see HPI, allergic reactions, allergic rhinitis, asthma, eczema, food allergy, frequent infections, hay fever, hives, positive PPD, urticaria, other Past History - Adult - PAST MEDICAL HISTORY-ADULT Review of Records: reports: Old Records Reviewed, Nursing Assessment Review, Social history reviewed & non-contributory. Major Childhood Illnesses: reports: denies history Cardiovascular: reports: denies history Respiratory: reports: denies history Gastrointestinal: reports: denies history Obstetrical/Gynecological: reports: denies history Genitourinary: reports: denies history Musculoskeletal: reports: denies history Neurological: reports: denies history Endocrine/Immune: reports: denies history Other Conditions: reports: denies history - FAMILY HISTORY Family History: reviewed, not pertinent Physical Exam-General - PHYSICAL EXAM-ADULT Initial Vital Signs Reviewed: Yes - CONSTITUTIONAL General Appearance: appears well, alert, no apparent distress - EYES Eyes: PERRL/EOMI, pink conjunctivae - HEAD, EARS, NOSE, MOUTH & THROAT HENMT: normocephalic/atraumatic, moist mucous membranes, normal ENT inspection - NECK Neck: non-tender, full range of motion, supple - RESPIRATORY Respiratory: chest non-tender, lungs clear, normal breath sounds, no pleuratic chest pain, no respiratory distress, no accessory muscle use - CARDIOVASCULAR Cardiovascular: normal peripheral pulses, regular rate, rhythm, no edema, no gallop, no JVD, no murmur - GASTROINTESTINAL (ABDOMEN) Abdominal Exam: normal bowel sounds, non tender, soft, no organomegaly, no pulsatile mass - LYMPHATIC Lymphatic: no adenopathy - MUSCULOSKELETAL Back Exam: normal inspection, no CVA tenderness, no vertebral tenderness Extremity: normal range of motion, non-tender, normal inspection Peripheral Pulses: radial (R): 2+, radial (L): 2+ - SKIN Integumentary: normal color, normal turgor, warm/dry - NEUROLOGIC Neurologic: grossly normal - PSYCHIATRIC Psych/Mental Status: normal mood/affect, oriented x 3 Progress - PLAN OF CARE/RESULTS Progress/Plan/Lab Results: Vital Signs - 8 hr 01/11/19 15:08 Temperature 97.7 F Pulse Rate 92 H Respiratory Rate 16 Blood Pressure 122/59 O2 Sat by Pulse Oximetry 100 Laboratory Results - last 24 hr 01/11/19 01/11/19 01/11/19 15:20 15:20 15:20 WBC 6.31 RBC 3.21 L Hgb 5.7 L* Hct 22.6 L MCV 70.4 L MCH 17.8 L MCHC 25.2 L RDW Std Deviation 21.4 H Plt Count 532 H MPV 10.8 H Immature Gran % (Auto) 0.6 H Neut % (Auto) 73.1 Lymph % (Auto) 14.6 L [place] % (Auto) 7.8 Eos % (Auto) 3.6 Baso % (Auto) 0.3 Immature Gran # (Auto) 0.04 Neut # (Auto) 4.61 Lymph # (Auto) 0.92 L [place] # (Auto) 0.49 Eos # (Auto) 0.23 Baso # (Auto) 0.02 PT 14.1 INR 1.07 PTT (Actin FS) 38.1 Sodium 137 Potassium 3.3 L Chloride 103 Carbon Dioxide 20 L Anion Gap 14 BUN 12 Creatinine 1.1 H Estimated GFR/1.73 m2 49 BUN/Creatinine Ratio 11 Glucose 101 Calculated Osmolality 274 Calcium 8.1 L Total Bilirubin < 0.15 L AST 9 L ALT 5 L Alkaline Phosphatase 202 H Total Protein 7.1 Albumin 3.9 Globulin 3.2 Albumin/Globulin Ratio 1.2 Blood Type Antibody Screen 01/11/19 15:20 WBC RBC Hgb Hct MCV MCH MCHC RDW Std Deviation Plt Count MPV Immature Gran % (Auto) Neut % (Auto) Lymph % (Auto) [place] % (Auto) Eos % (Auto) Baso % (Auto) Immature Gran # (Auto) Neut # (Auto) Lymph # (Auto) [place] # (Auto) Eos # (Auto) Baso # (Auto) PT INR PTT (Actin FS) Sodium Potassium Chloride Carbon Dioxide Anion Gap BUN Creatinine Estimated GFR/1.73 m2 BUN/Creatinine Ratio Glucose Calculated Osmolality Calcium Total Bilirubin AST ALT Alkaline Phosphatase Total Protein Albumin Globulin Albumin/Globulin Ratio Blood Type O POSITIVE Antibody Screen NEGATIVE Orders Category Date Time Status Saline Loc NOW Care 01/11/19 16:20 Active CBC WITH ELECTRONIC DIFF [HEME] Stat Lab 01/11/19 15:20 Completed COMPREHENSIVE METABOLIC PANEL [CHEM] Stat Lab 01/11/19 15:20 Completed PRBC [LRPC (RED CELLS)] [BBK] Stat Lab 01/11/19 16:20 Uncollected PROTIME WITH INR [COAG] Stat Lab 01/11/19 15:20 Completed PTT [COAG] Stat Lab 01/11/19 15:20 Completed TYPE & SCREEN [BBK] Stat Lab 01/11/19 15:20 Completed GI Bleed (possible) Stat Oth 01/11/19 15:13 Ordered Result Diagrams: 01/11/19 15:20 01/11/19 15:20 - CONSULTS/PCP/HOSPITALIST Notification #1 *Consult/PCP/Hospitalist*: KRUNAL Callahan Time Discussed: 17:09 Reason/Comments: Dr. Rico Consult Disposition: Admit Departure - Departure Date of Disposition Decision: 01/11/19 Time of Disposition Decision: 17:09 DIAGNOSIS: Anemia Disposition: ADMITTED INPATIENT 09 Certified Medical Emergency: Emergent Condition: Stable Referrals and Follow-Ups: Pritesh Haji MD [Primary Care Provider] - - Critical Care Note This patient required my direct & personal management of CC.: No Attestation - Physician/ ANA Attestation Patient care was provided by Advanced Practice Provider:: Yes Advanced Practice Provider:: Annabelle Bryant Advanced Practice Provider documentation review:: The Mid-level provider docu mentation, treatment plan and medical decision making was reviewed by the physician who agrees with all treatment and medical decision making by the P. The physician spent face to face time with patient:: No Advanced Practice Provider documentation review:: Supervising physician onsite and consulted in the evaluation and care of this patient. The physician did not have a face to face encounter with the patient.
[2019-01-11] MEDS ORDERED: NS 500 ML IV ONE (17:57)
[2019-01-11] MEDS ORDERED: NS 500 ML ONE ×2 (17:58→22:42)
[2019-01-11] MEDS ORDERED: SODIUM CHLORIDE 0.9% INJ ONE (18:42)
[2019-01-11] MEDS ORDERED: ZOFRAN IV PRN (19:30)
[2019-01-11] MEDS ORDERED: DUONEB (A & A) INH PRN (19:30)
[2019-01-11] MEDS ORDERED: TYLENOL PO PRN (19:30)
--- NOTE | 2019-01-11 20:29 | HISTORY AND PHYSICAL ---
PRIMARY CARE PHYSICIAN: Dr. Haji. PRINT [employer] STENOGRAPHER: Cj Navarro MD CHIEF COMPLAINT: Generalized weakness and had been feeling cold, was seen by Dr. Navarro today and found to be extremely anemic, so he sent her to the emergency room for evaluation and treatment. HISTORY OF PRESENTING ILLNESS: This is a 73-year-old female who presents to [facility] with complaints of feeling generalized weakness and feeling cold. Was seen by Dr. Navarro today for her iron deficiency anemia, was found to be anemic and sent to the emergency room for evaluation. She was in the hospital approximately 8 weeks ago on 11/01/2018 through 11/04/2018 where she received 2 units of blood at that time and was found to have iron deficiency anemia and has been followed by Dr. Navarro since that time. Today, her hemoglobin and hematocrit were 5.7 and 22.6. No abdominal pain. No black tarry stools. No visible signs of rectal bleeding or vaginal bleeding. So, she will be admitted for further evaluation and treatment. PAST MEDICAL HISTORY: Iron deficiency anemia and a bleeding stomach ulcer. PAST SURGICAL HISTORY: Cholecystectomy and hysterectomy. FAMILY HISTORY: Reviewed and noncontributory. SOCIAL HISTORY: She currently lives alone, is a half a pack a day smoker and has done so for 25 years. Denies any alcohol or illicit drug use. ALLERGIES: Iodine, codeine, penicillin, tetanus vaccine and toxoid. HOME MEDICATIONS: We will continue her DuoNebs q.4-6 hours p.r.n., Stephan 5 one p.o. q.4 hours p.r.n., Icar C 1 p.o. b.i.d., lansoprazole 30 mg p.o. daily and lisinopril 10 mg p.o. daily. LABORATORY DATA: Showed a white blood cell count of 6.31, hemoglobin 5.7, hematocrit 22.6, platelets 532,000. PT and INR of 14.1 and 1.07. Sodium 137, potassium 3.3, chloride 103, CO2 20, BUN of 12, creatinine 1.1, glucose 101. REVIEW OF SYSTEMS: She denied any fever, chills, blurred vision, dizziness. She was positive for generalized weakness, fatigue, no energy, was feeling cold. Denied any chest pain, coughing, shortness of breath. Denied any chest pain or coughing. She did have some occasional shortness of breath with exertion. Denied any abdominal pain, constipation, diarrhea, burning or hurting with urination. PHYSICAL EXAMINATION: VITAL SIGNS: On arrival, she had a temperature of 97.7 degrees, pulse 92, respirations 16, blood pressure 122/59, saturating 100% on room air. GENERAL: This is a 73-year-old female who is lying in the bed and answers questions appropriately. HEMNT: Normocephalic, atraumatic. Normal ENT inspection. Oropharynx and nares are clear. EYES: Pupils are equal, round, and reactive to light and accommodation. Extraocular movements are intact. NECK: Normal inspection, normal range of motion. LUNGS: Clear to auscultation bilaterally with equal lung expansion and chest wall movement. HEART: Regular rate and rhythm. No murmurs, rubs, or gallops. ABDOMEN: Soft, nontender, nondistended. Bowel sounds are present x4 quadrants. MUSCULOSKELETAL: She had 5/5 strength x4 extremities. NEUROLOGICAL: The cranial nerves 2 through 12 appear grossly intact. ASSESSMENT: 1. Symptomatic iron deficiency anemia. 2. Mild hypokalemia. 3. Tobacco abuse. PLAN: She will be admitted to the medical unit, placed on telemetry and regular diet. We will give her 2 units of packed red blood cells. Apply SCDs for DVT prophylaxis. She will receive potassium 40 mEq p.o. q.4 hours x2 doses. Continue her home medications as previously identified. Recheck a CBC, BMP in the a.m. Further orders after seen by attending. Dictated by KRUNAL Landon for Murali Rico MD cc: KRUNAL Landon MD Dr. Jackson I agree with most components of history, physical, assessment and plan. A separate addendum has been dictated. [facility]
[2019-01-11 20:49] LABS: IRON SATURATION 3 %; TIBC 334 ug/dL
[2019-01-11 20:59] LABS: TOTAL IRON 9 ug/dL (49-151); UNBOUND IRON 325 ug/dL (112-346)
--- NOTE | 2019-01-11 21:00 | HISTORY AND PHYSICAL ---
ADDENDUM: Addendum to the history and physical dictated by the nurse practitioner. I agree with most comments of history physical, assessment and plan. HISTORY OF PRESENT ILLNESS: In brief Ms. Gonzalez is a 73-year-old lady with past medical history of GI bleed, iron deficiency anemia, active tobacco abuse, COPD, essential hypertension, vitamin B 12 deficiency, who was seeing her outpatient oncologist and had got the outpatient blood test done in which she was detected to have a hemoglobin of 5.2. She was advised to come to the emergency room. In the emergency room, she was found to have weakness, coldness and tiredness and so the hospitalist team was requested to admit her for symptomatic anemia. At the time of my evaluation, the patient denies any blood in the stool or melena. She denies any blood in the mouth. She states the last time she saw a weigher and charger was about 3 years ago. She has not followed up with any weigher and charger after that. She has not seen the oncologist since last 2 or 3 years and this was the 1st time visit she was seeing in the last 2 to 3 years. She continues to smoke. I counseled her about smoking cessation. VITALS: Temperature of 98.6 degrees, pulse 84, respiratory 21, blood pressure 150/70, saturating 98% on room air. PHYSICAL EXAMINATION: GENERAL: Not in acute distress. She has conjunctival pallor. Cheilitis affecting the angle of the jaw. LUNGS: Air entry bilaterally equal. No wheeze, rhonchi, crackles. CARDIOVASCULAR: S1, S2 normal. No murmur, rub, or gallop. ABDOMEN: Soft, nontender. EXTREMITY: No lower extremity edema. NEUROLOGIC: She is alert and oriented x3. BACK: She has significant kyphosis. LABS: Suggestive of microcytic anemia, thrombocytosis, normal coagulation, hypokalemia, acute kidney injury. Microbiology no data. No new imaging. ASSESSMENT AND PLAN: 1. Acute on chronic microcytic anemia. 2. Prior history of upper gastrointestinal bleed. 3. Severe iron deficiency and vitamin B12 deficiency anemia in the past. 4. Active tobacco abuse. 5. Acute kidney injury. 6. Essential hypertension. PLAN: 1. The patient will receive 2 units of packed red blood cell transfusion and repeat CBC after that. I will follow up with serum ferritin level as well as iron studies including vitamin B12 and fecal occult blood test. Considering her prior history of gastrointestinal bleed, I have prophylactically start her on intravenous pantoprazole. She may eventually need a gastrointestinal evaluation. 2. Tobacco cessation was counseled. 3. Plan of care discussed with the patient and her sister at bedside. All of their questions have been answered. cc: Murali Rico MD MTDD
[2019-01-11 21:12] LABS: FERRITIN 19 ng/mL (13-150)
[2019-01-11] MEDS: KLOR-CON PO SCH (22:33)
[2019-01-11] MEDS: PROTONIX IV SCH (22:33)
[2019-01-11] MEDS: ICAR-C PO SCH (22:33)
[2019-01-11] MEDS: NORCO-5 PO PRN (23:15)
[2019-01-12] MEDS: KLOR-CON PO SCH (02:58)
[2019-01-12] MEDS: NORCO-5 PO PRN ×3 (05:20→21:23)
[2019-01-12] MEDS ORDERED: PRILOSEC PO SCH (07:00)
[2019-01-12 07:49] LABS: BASO# 0.03 X1000 (0.0-0.2); BASO% 0.4 % (0.0-0.8); EOS# 0.28 X1000 (0.0-0.7); EOS% 3.6 % (0.0-10.0); HEMATOCRIT 28.5 % (37.0-47.0); HEMOGLOBIN 7.9 g/dL (12.0-16.0); IMM GRAN# 0.05 X1000 (0.0-0.04); IMM GRAN% 0.6 % (0.0-0.5); LYMPH# 0.69 X1000 (1.2-3.4); LYMPH% 8.8 % (20.5-51.1); MCH 20.3 PG (27-31); MCHC 27.7 g/dL (33-37); MCV 73.1 FL (81-99); MONO# 0.65 X1000 (0.11-0.59); MONO% 8.3 % (1.7-9.3); NEUT# 6.14 X1000 (1.4-6.5); NEUT% 78.3 % (42.2-75.2); PLT 445 X1000 (130-400); RDW 21.7 % (11.5-14.5); WBC 7.84 X1000 (4.8-10.8)
[2019-01-12 08:35] LABS: AGAP 12; BUN 9 mg/dL (8-22); CALCIUM 8.4 mg/dL (8.8-10.2); CHLORIDE 108 mmol/L (98-107); COSMO 274; CREATININE 0.9 mg/dL (0.5-0.9); ESTIMATED GFR > 60; GLUCOSE 92 mg/dL (70-104); POTASSIUM 4.6 mmol/L (3.5-5.1); SODIUM 138 mmol/L (136-145); TCO2 18 mmol/L (25-35)
[2019-01-12 08:55] LABS: BANDS 4 % (0-1); LYMPHS 20 % (21-51); SEGS 72 % (42-75)
[2019-01-12 08:56] LABS: HYPOCHROM 2+; MICROCYTOSIS 2+
[2019-01-12] MEDS: PROTONIX IV SCH ×2 (09:27→21:22)
[2019-01-12] MEDS: ICAR-C PO SCH ×2 (09:27→21:23)
--- NOTE | 2019-01-12 14:39 | Diag Imaging Result Doc PS360 ---
EXAM: CHEST-2 VIEWS INDICATION: dyspnea and cough. eval for pneumonia TECHNIQUE: 2 views COMPARISON: 11/02/2018 FINDINGS: The lungs are grossly clear. There is no discrete pleural fluid collection or pneumothorax. The cardiomediastinal silhouette and central vasculature are grossly unremarkable. IMPRESSION: No evidence of acute pathology by plain radiograph. Electronically signed by Gal Cruz 01/12/2019 2:37 PM
[2019-01-12] MEDS ORDERED: DUONEB (A & A) INH SCH (16:00)
--- NOTE | 2019-01-12 19:42 | PROGRESS NOTE ---
DATE: 01/12/2019 INTERVAL HISTORY: She received 2 units of blood transfusion, which she tolerated well. She is denying any chest pain or shortness of breath today. Her hemoglobin michael appropriately. Her acute kidney injury and hypokalemia have resolved. SUBJECTIVE: She is feeling tired but denies any new complaints. I discussed about exam findings. She has not had a bowel movement. OBJECTIVE: Vital signs: Temperature 99.4 degrees, pulse 103, respiratory rate 28, blood pressure 150/60. She is saturating 97% on room air. General: She appears mildly tachypneic, not in distress. HEENT: Oral cavity is moist. Conjunctivae appears better. She has decreased air entry bilateral lung head. No wheeze or rhonchi. S1, S2 normal. No murmur, rub, or gallop. Abdomen: Soft, nontender. Extremities: No lower extremity edema. Musculoskeletal: She has significant kyphosis. She also has significant cheilitis affecting angle of the jaw. LABORATORY DATA: Suggestive of microcytosis. Increase in hemoglobin appropriately. Resolution of hypokalemia. Resolution of acute kidney injury. No positive microbiological data. IMAGING: Chest x-ray performed today has clear lung head. ASSESSMENT AND PLAN: 1. Acute on chronic microcytic anemia with prior history of upper gastrointestinal bleed and ongoing iron deficiency, status post 2 units of packed red blood cell transfusion. Continue oral iron, and she should have outpatient oncology follow up for IV iron infusion as needed. Stool occult blood test is pending. I discussed with her about outpatient GI followup. Her vitamin B12 level and folic acid levels were normal. 2. Dyspnea at rest and cough: This could be baseline due to COPD or it could be due to a new onset pneumonia or acute pulmonary edema due to blood transfusion. I will get a chest xray and sputum culture and observe her in patient. 2. Active tobacco abuse. I counseled about tobacco cessation. She agreed. I will keep her on scheduled albuterol ipratropium nebulization. I will also keep her on pantoprazole IV every 12 hours until I get the fecal occult blood test and confirm that she would not have any ongoing gastrointestinal bleed. 3. Hypokalemia and acute kidney injury have resolved. 4. Essential hypertension. I will resume her home lisinopril once her blood pressure is more stable. DISPOSITION: Continue to monitor patient inside the hospital for at least next 24 to 48 hours. Plan of care discussed with her. All of her questions have been answered. cc: Murali Rico MD MTDD
[2019-01-13 07:42] VITALS: BP 169/75
[2019-01-13 07:48] LABS: HEMATOCRIT 30.8 % (37.0-47.0); HEMOGLOBIN 8.8 g/dL (12.0-16.0); MCHC 28.6 g/dL (33-37); MCV 73.5 FL (81-99); MPV 10.6 FL (7.4-10.4); RBC 4.19 XMIL (4.2-5.4); RDW 22.6 % (11.5-14.5); WBC 7.97 X1000 (4.8-10.8)
[2019-01-13] MEDS: ICAR-C PO SCH (09:19)
[2019-01-13] MEDS: NORCO-5 PO PRN (09:20)
[2019-01-13] MEDS: PROTONIX IV SCH (09:20)
[2019-01-13] MEDS ORDERED: PNEUMOVAX 23 IM ONE (11:45)
[2019-01-13] MEDS ORDERED: FLU VACCINE IM ONE (11:47)
--- NOTE | 2019-01-14 06:57 | DISCHARGE SUMMARY ---
ADMISSION DATE: 01/12/2019 DISCHARGE DATE: 01/13/2019 DISCHARGE DISPOSITION: Home with family. DISCHARGE CONDITION: Hemodynamically stable. She is alert oriented x3. Her hemoglobin has been stable in 48 hours. She does not have any overt bleeding. She has not had a bowel movement so stool occult blood test could not be sent. DISCHARGE DIAGNOSES: 1. Acute on chronic microcytic anemia. 2. Iron-deficiency anemia. 3. Dyspnea at rest and cough. 4. Symptomatic severe anemia. 5. Acute tobacco abuse. 6. Hypokalemia. 7. Acute kidney injury. OTHER DIAGNOSES: 1. History of essential hypertension. 2. History of chronic obstructive pulmonary disease. 3. History of chronic iron deficiency anemia. 4. History of multiple bleeding peptic ulcer disease in the past with poor medical follow-up. DISCHARGE MEDICATIONS: 1. Lisinopril 10 mg daily. 2. Albuterol ipratropium nebulization 3 mL inhaled every 4 to 6 hours as needed for shortness of breath. 3. Ascorbic Acid 1 tablet b.i.d. 4. [place] 5 one tablet every 4 hours as needed for pain. 5. Lansoprazole 30 mg b.i.d. for 14 days, and then once daily. 6. Acetaminophen 650 mg every 6 hours as needed for pain. Total acetaminophen dose should not be exceeded 4 g for 24 hours. VITALS: At the time of discharge, temperature of 98.1 degrees, pulse 96, respiratory 14, and blood pressure 116/75. She is saturating 97% room air. PHYSICAL EXAMINATION: General: Patient does not appear in acute distress. Oral cavity is moist. She has cheilitis. Lungs: Air entry bilaterally equal. No wheeze, rhonchi, or crackles. Cardiovascular: S1, S2 normal. No murmur, rub, or gallop. She has marked kyphosis. Abdomen: Soft and nontender. No hepatosplenomegaly. Extremities: No lower extremity edema. Neurologic: She was alert and oriented times 3. SIGNIFICANT LABS: During hospital admission and discharge, her hemoglobin was 5.7 on presentation, which improved to 8.8 at the time of discharge after 2 units of transfusion. Her platelet count was 464,000. Her mean corpuscular volume was 70.4. Coagulation had INR of 1.07, PTT of 38. Her potassium was 3.3 which improved to 4.6 at the time of discharge. Her BUN was 12 and creatinine of 1.1 on presentation, which improved to 9 and 0.9 at the time of discharge respectively. No microbiological data. Chest x-ray on the second day of admission did not have any evidence of acute pathology. HOSPITAL COURSE SUMMARY: Ms. Gonzalez is a 73 year old lady with past medical history of GI bleed, iron deficiency anemia, active tobacco abuse, COPD, essential hypertension, and vitamin B12 deficiency, who was seeing an outpatient oncologist who had performed blood tests where she was found to have hemoglobin of 5.2 so she was advised to come to the emergency room. In the emergency room, she complained of weakness, coldness, and exertional shortness of breath. Considering she had symptoms of anemia, admission was requested with the hospitalist team. As the patient did not have known melena or active bleeding in the stool, she was admitted for further management. She received 2 units of blood transfusion following which her hemoglobin increased appropriately. Apparently, she did not have a bowel movement to get fecal occult blood test. Her iron stores had suggested low ferritin, and she was continued on her home oral iron. She was also treated with proton pump inhibitors IV every 12 hours. She was counseled about quitting smoking. At the time of discharge, her hemoglobin was stable for 24 hours without any active bleeding. It was decided to discharge her, and have outpatient GI followup and oncology follow-up. Apparently, patient had not seen a GI physician since 2016. She had not been to a patient observer since probably 2 years ago. She was advised to keep a close follow-up, smoking cessation, and continue taking iron tablets. TIME SPENT: More than 30 minutes of time was spent in discharging the patient. All of her questions were satisfactorily answered. After intravenous fluids, her potassium and acute kidney injury had resolved. In the hospital, she did have an episode of shortness of breath and cough for which chest x-ray was performed which did not have any acute pathology. cc: Murali Rico MD
== END 2019-01-13 14:14 | disposition home health service (06) | DRG 812 ==
LOC: ED 15:04 → EDIPHOLD 19:41 → INTOOBSV 19:41 → 4N 20:20
PROVIDERS: ATTEND Internal Medicine

== ENCOUNTER 2019-01-19 14:51 | Inpatient (IN) ==
[2019-01-19] MEDS ORDERED: NS 1,000 ML IV ONE ×2 (15:10→16:42)
--- NOTE | 2019-01-19 15:22 | PROVIDER DOCUMENTATION ---
HPI-Abdominal Pain/GI Problem - General Chief Complaint: N/V/D Stated Complaint: abd pain, diarrhea, nausea Time Seen by Provider: 01/19/19 15:04 Source: patient Allergies/Adverse Reactions: Patient Allergies Allergy/AdvReac Type Severity Reaction Status Date / Time iodine Allergy Severe ANAPHYLAXIS Verified 01/11/19 16:40 codeine [Codeine] Allergy Unknown unknown Verified 01/11/19 16:40 Penicillins Allergy Unknown unknown Verified 01/11/19 16:40 Tetanus Vaccines and Toxoid Allergy Unknown Unknown Verified 01/11/19 16:40 [Tetanus] Home Medications: Home Medication List Medication Instructions Recorded Confirmed Last Taken Type Lisinopril 10 mg PO DAILY 01/11/19 01/19/19 01/18/19 History 10 MG Lansoprazole [Prevacid] 30 mg PO BID #60 capsule. 01/13/19 01/19/19 01/18/19 Rx 30 MG Hydrocodone/APAP 5 mg/325 mg 1 ea PO Q8H PRN PRN 01/19/19 01/19/19 01/18/19 History [Percival-5] 1 EA Tramadol [Ultram] 50 mg PO Q8HR #10 tab 01/19/19 Unknown Rx - History of Present Illness-ABD Nature of Presenting Problems: [id number] reports to the ER via EMS for c/o NVD since 6:30 last night. She reports multiple episodes of diarrhea through the night with dry heaving. She reports not being able to keep anything down all day. She was recently discharged from the hospital on 01/13/19 anemia and acute kidney injury. Abdominal Pain Onset Location: reports: generalized abdomen Quality of Pain: reports: cramping Severity in ED: reports: moderate Onset/Duration: reports: last night Timing: reports: constant Exposure to sick contacts?: No Associated Symptoms: reports: diarrhea, nausea, vomiting Last BM: this morning Review of Systems - Adult - REVIEW OF SYSTEMS - ADULT Constitutional: reports: see HPI. denies: chills, fever Eyes: reports: no symptoms reported Ears, Nose, Mouth & Throat: reports: no symptoms reported Cardiovascular: reports: no symptoms reported. denies: chest pain, syncope Respiratory: reports: no symptoms reported. denies: cough, wheezing Gastrointestinal: reports: see HPI, abdominal pain, diarrhea, nausea, vomiting Genitourinary: reports: no symptoms reported Musculoskeletal: reports: no symptoms reported Integumentary: reports: no symptoms reported Neurological: reports: see HPI, dizziness/vertigo Psychiatric: reports: no symptoms reported Endocrine: reports: no symptoms reported Hematologic/Lymphatic: reports: no symptoms reported Allergic/Immunologic: reports: no symptoms reported All Other Systems: Reviewed and Negative Past History - Adult - PAST MEDICAL HISTORY-ADULT Review of Records: reports: Old Records Reviewed, Nursing Assessment Review, Medications Reviewed, Social history reviewed & non-contributory. Major Childhood Illnesses: reports: denies history Cardiovascular: reports: denies history Respiratory: reports: denies history Gastrointestinal: reports: denies history Obstetrical/Gynecological: reports: denies history Genitourinary: reports: denies history Musculoskeletal: reports: denies history Neurological: reports: denies history Endocrine/Immune: reports: denies history Other Conditions: reports: denies history - IMMUNIZATION STATUS Childhood Immunizations: See Nurse Assessment Flu Vaccine: See Nurse Assessment - FAMILY HISTORY Family History: reviewed, not pertinent - SOCIAL HISTORY Smoking: denies Substance Use: denies Living Situation: alone Physical Exam-General - PHYSICAL EXAM-ADULT Initial Vital Signs Reviewed: Yes - CONSTITUTIONAL General Appearance: alert, moderate distress, thin - EYES Eyes: PERRL/EOMI, pink conjunctivae - HEAD, EARS, NOSE, MOUTH & THROAT HENMT: normocephalic/atraumatic, TMs normal. negative: moist mucous membranes (dry) - NECK Neck: full range of motion, supple - RESPIRATORY Respiratory: lungs clear, normal breath sounds. negative: rhonchi, wheezing - CARDIOVASCULAR Cardiovascular: normal peripheral pulses, no gallop, no murmur, tachycardia (120s) - GASTROINTESTINAL (ABDOMEN) Abdominal Exam: soft, tenderness (generalized) - LYMPHATIC Lymphatic: no adenopathy - MUSCULOSKELETAL Back Exam: no CVA tenderness Peripheral Pulses: radial (R): 2+, radial (L): 2+ - SKIN Integumentary: warm/dry, pallor - NEUROLOGIC Neurologic: grossly normal - PSYCHIATRIC Psych/Mental Status: oriented x 3 Progress - PLAN OF CARE/RESULTS Progress/Plan/Lab Results: Orders Category Date Time Status Saline Loc NOW Care 01/19/19 15:10 Active CBC WITH ELECTRONIC DIFF [HEME] Stat Lab 01/19/19 15:09 Uncollected COMPREHENSIVE METABOLIC PANEL [CHEM] Stat Lab 01/19/19 15:10 Uncollected 0.9% Sodium Chloride Inj [Ns] 1,000 ml Med 01/19/19 15:10 Active IV 999 mls/hr Ultram prescription not given. patient verbalizes an understanding of POC and agree with treatment rendered here today. Result Diagrams: 01/19/19 16:10 01/19/19 16:10 - XRAY 1 XRAY Study: Chest Impression: Normal (FINDINGS: The lungs are well expanded. The heart is not enlarged. The vessels are not distended. There are no infiltrates. No effusion identified. IMPRESSION: No pneumonia), See EMR Report - CONSULTS/PCP/HOSPITALIST Notification #1 *Consult/PCP/Hospitalist*: Dr Andrade Time Discussed: 19:12 Reason/Comments: Gastroenteritis, acute renal failure Consult Disposition: Admit Departure - Departure Date of Disposition Decision: 01/19/19 Time of Disposition Decision: 19:12 DIAGNOSIS: Gastroenteritis Acute renal failure (ARF) Qualifiers: Acute renal failure type: unspecified Qualified Code(s): N17.9 - Acute kidney failure, unspecified Disposition: ADMITTED INPATIENT 09 Certified Medical Emergency: Emergent Condition: Critical Prescriptions: Tramadol [Ultram] 50 mg PO Q8HR #10 tab Referrals and Follow-Ups: Pritesh Haji MD [Primary Care Provider] - - Critical Care Note This patient required my direct & personal management of CC.: No Attestation - Physician/ ANA Attestation Patient care was provided by Advanced Practice Provider:: Yes Advanced Practice Provider:: Sudhir Lopez Advanced Practice Provider documentation review:: The Mid-level provider documentation, treatment plan and medical decision making was reviewed by the physician who agrees with all treatment and medical decision making by the MLP. The physician spent face to face time with patient:: No Advanced Practice Provider documentation review:: Supervising physician onsite and consulted in the evaluation and care of this patient. The physician did not have a face to face encounter with the patient.
[2019-01-19 16:26] LABS: URINE SOURCE CLEAN CATCH
[2019-01-19 16:32] LABS: BASO# 0.02 X1000 (0.0-0.2); BASO% 0.1 % (0.0-0.8); HEMATOCRIT 35.5 % (37.0-47.0); HEMOGLOBIN 10.3 g/dL (12.0-16.0); IMM GRAN# 0.04 X1000 (0.0-0.04); IMM GRAN% 0.2 % (0.0-0.5); LYMPH# 1.03 X1000 (1.2-3.4); MCV 72.3 FL (81-99); MONO# 1.15 X1000 (0.11-0.59); MONO% 6.7 % (1.7-9.3); NEUT# 14.97 X1000 (1.4-6.5); PLT 639 X1000 (130-400); RBC 4.91 XMIL (4.2-5.4); RDW 23.5 % (11.5-14.5); WBC 17.21 X1000 (4.8-10.8)
[2019-01-19 16:32] LABS: BILIRUBIN URINE SMALL (NEGATIVE); BLOOD URINE NEGATIVE (NEGATIVE); COLOR YELLOW; GLUCOSE URINE NEGATIVE (NEGATIVE); KETONE URINE TRACE mg/dL (NEGATIVE); LEUKOCYTES URINE TRACE (NEGATIVE); NITRITE URINE NEGATIVE (NEGATIVE); PH URINE 5.5; PROTEIN URINE 50 mg/dL (NEGATIVE); SP GRAVITY URINE 1.028; TURBIDITY URINE HAZY (CLEAR); UR EPITHELIAL CELLS >10 /HPF (<10); URINE BACTERIA NEGATIVE /HPF; URINE RBC <10 /HPF (<10); UROBILINOGEN URINE 4 mg/dL (NORMAL)
[2019-01-19 16:49] LABS: ALB/GLOB RATIO 1.2; ALBUMIN 3.7 g/dL (3.5-5.0); CALCIUM 8.5 mg/dL (8.8-10.2); CREATININE 2.1 mg/dL (0.5-0.9); POTASSIUM 4.4 mmol/L (3.5-5.1); TOTAL BILIRUBIN 0.18 mg/dL (0.20-1.00); TOTAL PROTEIN 6.8 g/dL (6.3-8.3)
--- NOTE | 2019-01-19 16:54 | Diag Imaging Result Doc PS360 ---
EXAM: CHEST-1 VIEW HISTORY: leukocytosis TECHNIQUE: Single view COMPARISON: 01/12/2019 FINDINGS: The lungs are well expanded. The heart is not enlarged. The vessels are not distended. There are no infiltrates. No effusion identified. IMPRESSION: No pneumonia Electronically signed by Sherman Lamb 01/19/2019 4:52 PM
[2019-01-19 17:01] LABS: URINE CASTS GRANULAR PRESENT; URINE YEAST NONE SEEN
[2019-01-19 17:02] LABS: INR 1.09; PROTIME 14.2 Seconds (11.0-16.0)
[2019-01-19 17:03] LABS: PTT 35.3 Seconds (22.3-41.8)
[2019-01-19] MEDS ORDERED: DILAUDID IV ONE (18:32)
[2019-01-19] MEDS ORDERED: LEVAQUIN 750 MG/D5W 750 MG/150 ML IVPB IV ONE (19:16)
--- NOTE | 2019-01-19 20:32 | Diag Imaging Result Doc PS360 ---
CT ABDOMEN/PELVIS W/O CONTRAST - 01/19/2019 INDICATION: NVD COMPARISON: 02/19/2016 FINDINGS: There is moderate infiltrate in both lower lobes that may represent atelectasis or pneumonia. There is severe wall thickening with surrounding inflammation involving the entire descending and sigmoid colon. No bowel obstruction. No free air or free fluid. No radiodense renal stones. No hydronephrosis or hydroureter. There are cholecystectomy clips. Uterus is absent. Urinary bladder and rectum are normal. There are moderate degenerative changes of the spine. No acute or suspicious bony lesion. IMPRESSION: 1. Extensive, severe colitis. 2. Nonspecific atelectasis or infiltrate in both lower lobes. This exam was performed using automated exposure control, adjustment of mA or kV according to patient size, and/or use of iterative reconstruction technique Electronically signed by Rajesh Hernandez 01/19/2019 8:29 PM
[2019-01-19] MEDS ORDERED: DILAUDID IV PRN (21:37)
[2019-01-19] MEDS ORDERED: NS 1,000 ML IV SCH (21:45)
[2019-01-20] MEDS: PROTONIX IV SCH ×2 (00:27→22:27)
[2019-01-20] MEDS: FLAGYL 500 MG/NS 500 MG/100 ML IVPB IV SCH ×3 (00:28→19:10)
--- NOTE | 2019-01-20 05:40 | HISTORY AND PHYSICAL ---
CHIEF COMPLAINT: Diarrhea for about 1 day. HISTORY OF PRESENT ILLNESS: Ms. Dorie Gonzalez is a 73-year-old female who has a history of iron deficiency anemia as well as peptic ulcer disease. She presents to the hospital because of diarrhea which has been ongoing for about a day. She has had several bowel movements in the last 24 hours or there about, about 30 bowel movements. She denies any hematochezia. She denies any vomiting. She has some slight abdominal pains. No fever. The patient was recently in the hospital, and during her last hospital stay she was diagnosed with iron deficiency anemia. She did receive 2 units of packed red blood cells. The patient was discharged to follow up with GI as well as Oncology in the outpatient. PAST MEDICAL HISTORY: Iron deficiency anemia as well as peptic ulcer disease. PAST SURGICAL HISTORY: She has had a hysterectomy as well as cholecystectomy. FAMILY HISTORY: Noncontributory. SOCIAL HISTORY: She smokes cigarettes. Denies alcohol or drug use. ALLERGIES: She is allergic to iodine, codeine, penicillin, tetanus vaccine as well as tetanus toxoid. MEDICATIONS: 1. Lisinopril 10 mg p.o. daily. 2. Albuterol/ipratropium nebulized 30 mL every 4 to 6 hours as needed. 3. Ascorbic Acid 1 twice a day. 4. [place] 5 every 4 hours as needed. 5. Lansoprazole 30 mg p.o. twice a day. 6. Acetaminophen 650 mg every 6 hours as needed for pain. REVIEW OF SYSTEMS: Constitutional: No fevers. 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 Eyes: No blurred vision. Ears, nose, and throat: She has some hearing loss. Cardiovascular: No chest pain. Respiratory: She has cough. : No dysuria. Musculoskeletal: She has joint pains. Dermatology: No skin lesions. Hematology: No bleeding problems. Nephrology: No thyroid or diabetes. Psychiatric: No anxiety or depression. Allergies/Immunology: No symptoms suggestive of allergic rhinitis. PHYSICAL EXAMINATION: VITAL SIGNS: Temperature 97.9 degrees, pulse 106, respirations 18, blood pressure 125/57, and oxygen saturation 94%. HEENT: Atraumatic and normocephalic. She is anicteric. Extraocular movements intact. No oral lesions noted. NECK: No lymphadenopathy or thyromegaly. CARDIOVASCULAR: S1, S2. RESPIRATORY: She has evidence of good air entry bilaterally. ABDOMEN: Soft and nontender. No masses felt. EXTREMITIES: No evidence of edema. CENTRAL NERVOUS SYSTEM: No obvious focal deficit noted. LABORATORY DATA: WBC 17.21, hematocrit 35.5, and platelet count is 639,000. Sodium 137, potassium 4.4, chloride 102, bicarb 16, BUN 32, and creatinine is 2.1. Alkaline phosphatase 212. UA shows about 10 to 20 WBCs per high-power field. CT scan of the abdomen and pelvis shows evidence of extensive severe colitis as well as nonspecific atelectasis or infiltrate in the lower lobes. X-ray of the chest shows no pneumonia. ASSESSMENT AND PLAN: 1. Extensive severe colitis. We will send out stool for C. Diff WBC as well as culture. Start patient on empiric antibiotics. We used a combination of quinolone as well as metronidazole. Consult with Gastroenterology. 2. Probable pneumonia based on CT scan findings. Check sputum cultures. Continue antibiotics. 3. Probable urinary tract infection based on urinalysis. Follow up on urine culture. Continue antibiotics. 4. Non anion gap metabolic acidosis. Aware. Follow up on the patient's bicarb levels while receiving treatment. 5. Acute kidney injury most likely secondary to prerenal azotemia. Follow up on renal function. Continue IV hydration. Avoid nephrotoxic agents. 6. Iron deficiency anemia. Continue iron replacement. 7. Hypertension. Continue current antihypertensive regimen. 8. Deep vein thrombosis prophylaxis. Sequential compression devices. 9. Gastrointestinal prophylaxis. Proton pump inhibitor. cc: Blu Andrade MD
[2019-01-20 06:54] LABS: BASO# 0.03 X1000 (0.0-0.2); BASO% 0.2 % (0.0-0.8); EOS# 0.01 X1000 (0.0-0.7); EOS% 0.1 % (0.0-10.0); HEMATOCRIT 28.1 % (37.0-47.0); HEMOGLOBIN 7.9 g/dL (12.0-16.0); IMM GRAN# 0.03 X1000 (0.0-0.04); IMM GRAN% 0.2 % (0.0-0.5); LYMPH# 1.18 X1000 (1.2-3.4); MCH 21.1 PG (27-31); MCHC 28.1 g/dL (33-37); MCV 74.9 FL (81-99); MONO# 0.89 X1000 (0.11-0.59); MONO% 6.8 % (1.7-9.3); NEUT# 11.02 X1000 (1.4-6.5); NEUT% 83.7 % (42.2-75.2); PLT 522 X1000 (130-400); RBC 3.75 XMIL (4.2-5.4); RDW 23.1 % (11.5-14.5); WBC 13.16 X1000 (4.8-10.8)
[2019-01-20 07:06] LABS: IRON SATURATION 5 %; TIBC 230 ug/dL; TOTAL IRON 12 ug/dL (49-151); UNBOUND IRON 218 ug/dL (112-346)
[2019-01-20 07:19] LABS: LYMPHS 4 % (21-51); MONO 4 % (1-9); SEGS 92 % (42-75)
[2019-01-20 07:49] LABS: AGAP 15; ALB/GLOB RATIO 1.2; ALBUMIN 2.9 g/dL (3.5-5.0); ALKALINE PHOSPHATASE 146 U/L (32-104); BUN 27 mg/dL (8-22); CALCIUM 7.8 mg/dL (8.8-10.2); CHLORIDE 109 mmol/L (98-107); COSMO 284; CREATININE 1.4 mg/dL (0.5-0.9); ESTIMATED GFR 37; GLUCOSE 82 mg/dL (70-104); GOT 11 U/L (10-30); GPT < 5 U/L (10-36); SODIUM 140 mmol/L (136-145); TCO2 16 mmol/L (25-35); TOTAL BILIRUBIN < 0.15 mg/dL (0.20-1.00); TOTAL PROTEIN 5.3 g/dL (6.3-8.3)
[2019-01-20] MEDS: ZOFRAN IV PRN ×2 (11:47→18:43)
[2019-01-20] MEDS: NS 1,000 ML IV SCH ×2 (11:50→18:43)
[2019-01-20] MEDS: DILAUDID IV PRN ×3 (12:01→22:26)
--- NOTE | 2019-01-20 12:38 | PROGRESS NOTE ---
DATE: 01/20/2019 SUBJECTIVE: Patient reports feeling not okay, still nauseated and having diarrhea. Denies any fever or chills though. OBJECTIVE: Vital Signs: Temperature 98 degrees, heart rate 99, respiratory rate 20, blood pressure 133/59, O2 saturation 97% on 2 L nasal cannula. This is a chronically ill-appearing 73- year-old female lying in bed, in no acute distress. Cardiovascular: S1, S2 heard. No murmurs, gallops, or rubs. Regular rate and rhythm. Respiratory: Clear bilaterally to auscultation. No work of breathing or using accessory muscles. Abdomen: Soft, nontender to palpation. Bowel sounds present, hyperactive. No organomegaly noted. Extremities: No clubbing, cyanosis, or edema. Peripheral pulses present in both legs. Neurological: Patient is alert and oriented x3. Moves 4 extremities. LABORATORY DATA: White cell count 13.16, hemoglobin 7.9, hematocrit 28.1, platelets 552,000 with MCV of 74. BMP shows creatinine 1.4, calcium 1.8 with iron of 12. ASSESSMENT AND PLAN: 1. Extensive severe colitis. The patient is being treated empirically with levofloxacin and metronidazole. Clinically, she is not feeling okay yet, but her white cell count is getting better. Will continue with the same management. 2. Bibasilar pneumonia. I think Levaquin is covering this problem. Sputum culture is still pending. We will continue with same management. 3. Possible urinary tract infection. Will continue with Levaquin and will see what the urine culture shows. At this point, just showing gram-negative rods. 4. Acute kidney injury. Getting better with IV fluids. We will continue checking renal profile on a daily basis. Will avoid nephrotoxic medications as well. 5. Iron deficiency anemia. I think we will provide 1 dose of Venofer 500. 6. Hypertension. Blood pressure is under control. Will continue with same management. 7. Disposition. Will continue to monitor this patient closely. cc: Rafael Mina MD
--- NOTE | 2019-01-20 15:19 | GASTROENTEROLOGY CONSULTATION ---
DATE: 01/20/2019 REASON FOR CONSULTATION: Diarrhea, colitis per CT scan. HISTORY OF PRESENT ILLNESS: This is a 73-year-old, female. She has not been seen by Dr. Rockwell in the past, but has been seen by Dr. Sheridan in 2017. The patient was just in the hospital and discharged last week for anemia. Apparently, patient follows with Dr. Navarro for iron- deficiency anemia. Apparently last week, she was recommended to follow up with her GI doctor. Patient reports onset of symptoms Wednesday evening. She reports having severe diarrhea about every 15 minutes. She has denied any visible bright red blood in the stool, but did report some dark stools. Her Hemoccult test was positive. So far, stool study showed negative C. difficile. Currently, waiting on stool culture. Patient has denied any nausea or vomiting, but has reported some episodes of gagging and lower abdominal pain. Information was obtained from the chart and records from Dr. Sheridan. Per Dr. Sheridan's records, she had done a colonoscopy in 2015, that showed diverticulitis and an incomplete colonoscopy due to the diverticulitis. She repeated her colonoscopy and also did an EGD in 2016, that showed esophageal Schatzki's ring with dilation performed. She also had another incomplete colonoscopy due to extensive diverticulosis and poor bowel prep. A barium enema was done in March 2016, that showed no discrete colon filling defects or strictures. As noted, the patient has not followed back in our office since then. PAST MEDICAL HISTORY: Iron-deficiency anemia, history of peptic ulcer disease, COPD, diverticulosis. PAST SURGICAL HISTORY: Appendectomy, last colonoscopy and EGD in 2016, cholecystectomy in 2011, hysterectomy. ALLERGIES: Iodine causing anaphylaxis. Codeine, unknown reaction. Penicillins, unknown reaction. Tetanus, unknown reaction. HOME MEDICATIONS: Hydrocodone 5/325 every 8 hours as needed, Prevacid 30 mg twice a day, lisinopril 10 mg daily. SOCIAL HISTORY: Positive for tobacco use. Denies alcohol or drug use. The patient states she lives alone. REVIEW OF SYSTEMS: Per history of present illness. PHYSICAL EXAMINATION: Vital Signs: Temperature 98.4 degrees, pulse 96, respirations 20, blood pressure 127/52. General: The patient is awake and alert. She is complaining of a headache. HEENT: Normocephalic, atraumatic. Pupils equal, round, reactive to light. Sclerae are nonicteric. Cardiovascular: Regular rate and rhythm. Respiratory: Lung sounds essentially clear. Abdomen: Soft, nondistended. Mild tenderness in the lower abdomen. Positive bowel sounds. Extremities: No lower extremity edema noted. Neurological: Cranial nerves 2-12 are grossly intact. DIAGNOSTIC RESULTS: Laboratory: Hematology: WBC 13.16, 17.21 on admission. Hemoglobin 7.9, hematocrit 28.1, MCV 74.9, platelets 522,000. Coagulation: ProTime 14.2, INR 1.09, PTT 35.3. Chemistry: Sodium 140, potassium 4.0, chloride 109, CO2 of 16, BUN 27, creatinine 1.4, glucose 82, calcium 7.8. Iron 12, TIBC 230, percent saturation 5, ferritin 214. AST 11, ALT 5, alkaline phosphatase 146. Stool culture is pending. Stool for occult blood was positive. Stool for C. difficile toxin was negative. Urine culture showed gram-negative rods. Imaging: Abdominal and pelvis CT scan showing extensive severe colitis with nonspecific atelectasis or infiltrate in both lower lobes. ASSESSMENT AND PLAN: 1. Diarrhea. 2. Severe colitis by CT scan. Most likely infectious. Recommend to continue antibiotics. 3. Urinary tract infection. On antibiotics. 4. Iron-deficiency anemia. Patient follows apparently with Dr. Navarro. Last EGD and colonoscopy was in 2017. Continue to monitor hemoglobin and hematocrit, and transfuse packed red blood cells as needed. Patient did receive 2 units of packed red blood cells on her admission last week. Again, we will continue to follow for signs of active bleeding. Would not proceed with endoscopy at present time. Continue antibiotics for colitis and further plans to be made according to her progress. Most likely, she can have her workup for iron-deficiency anemia as an outpatient, but GI will continue to follow and further plans will be made as needed. I have discussed this case with Dr. Rockwell. We will allow clear liquid diet, but avoid milk and dairy products. Continue current antibiotics. Thank you for this consultation. Dictated by KRUNAL Koehler for Joe Rockwell MD cc: KRUNAL Gibson MD
[2019-01-20] MEDS: LEVAQUIN 250 MG/D5W 250 MG/50 ML IVPB IV SCH (20:30)
[2019-01-20] MEDS: SODIUM CHLORIDE 0.9% INJ SCH (22:27)
[2019-01-21] MEDS: FLAGYL 500 MG/NS 500 MG/100 ML IVPB IV SCH ×3 (02:41→21:21)
[2019-01-21] MEDS: NS 1,000 ML IV SCH ×3 (02:41→23:06)
[2019-01-21 07:38] LABS: BASO# 0.03 X1000 (0.0-0.2); BASO% 0.3 % (0.0-0.8); EOS# 0.12 X1000 (0.0-0.7); EOS% 1.1 % (0.0-10.0); HEMATOCRIT 25.2 % (37.0-47.0); HEMOGLOBIN 6.8 g/dL (12.0-16.0); IMM GRAN# 0.04 X1000 (0.0-0.04); IMM GRAN% 0.4 % (0.0-0.5); LYMPH# 0.92 X1000 (1.2-3.4); LYMPH% 8.7 % (20.5-51.1); MCH 20.5 PG (27-31); MCV 76.1 FL (81-99); MONO# 0.61 X1000 (0.11-0.59); MONO% 5.8 % (1.7-9.3); MPV 10.5 FL (7.4-10.4); NEUT# 8.84 X1000 (1.4-6.5); NEUT% 83.7 % (42.2-75.2); PLT 510 X1000 (130-400); RBC 3.31 XMIL (4.2-5.4); WBC 10.56 X1000 (4.8-10.8)
[2019-01-21 08:04] LABS: LYMPHS 12 % (21-51); MONO 8 % (1-9); SEGS 74 % (42-75)
[2019-01-21 08:10] LABS: ALBUMIN 2.9 g/dL (3.5-5.0); CALCIUM 7.8 mg/dL (8.8-10.2); PHOSPHORUS 2.3 mg/dL (2.7-4.5); POTASSIUM 3.8 mmol/L (3.5-5.1)
[2019-01-21] MEDS ORDERED: NS 500 ML IV ONE (10:26)
[2019-01-21] MEDS ORDERED: SODIUM PHOSPHATE 35 MMOL in NS 250 ML IV ONE (10:27)
[2019-01-21] MEDS: ZOFRAN IV PRN ×2 (11:01→18:58)
[2019-01-21] MEDS: DILAUDID IV PRN ×2 (11:01→18:58)
[2019-01-21] MEDS: POTASSIUM CHLORIDE 20 MEQ/SWI 20 MEQ/100 ML IVPB IV SCH ×2 (12:48→17:27)
--- NOTE | 2019-01-21 12:58 | PROGRESS NOTE ---
DATE: 01/21/2019 SUBJECTIVE: Patient reports much weaker today. Denies any hematemesis or black stools. Abdominal pain is on and off. OBJECTIVE: Vital Signs: Temperature 98.7 degrees, heart rate 89, respiratory rate 18, blood pressure 155/57, O2 saturation 96% on room air. General Examination: This is a chronically ill- appearing, 73-year-old female lying in bed, in no acute distress. Cardiovascular: S1, S2 heard. No murmurs, gallops, or rubs. Regular rate and rhythm. Respiratory: Clear bilaterally to auscultation. No work of breathing or using accessory muscles. Abdomen: Soft, nontender to palpation. Bowel sounds present. No organomegaly. Bowel sounds present, hyperactive. Extremities: No clubbing, cyanosis, or edema. Peripheral pulses present in both legs. Neurological: Patient is alert and oriented x3. Moves 4 extremities. LABORATORY DATA: Hemoglobin is 6.8, hematocrit 25.2, platelets 510,000 with normal creatinine. ASSESSMENT/PLAN: 1. Extensive severe colitis. The patient is on levofloxacin and metronidazole. Clinically, she is now feeling okay. White cell count is definitely getting much better. We will continue to monitor. 2. Bibasilar pneumonia. Patient currently on Levaquin. Currently requiring 2 L of oxygen by nasal cannula. We will continue with the same management. 3. UTI. The patient is receiving levofloxacin that is covering this infection. 4. Acute kidney injury resolved after IV fluids. 5. Iron deficiency anemia versus anemia of blood loss. The patient has dropped hemoglobin to 6.8, so we are going to transfuse 2 units of blood. Considering that she has received 2 units of blood a few days ago, probably 1 to 2 weeks ago, we will see if GI decided to do endoscopy or not. We will see what they think. 6. Hypertension. Blood pressure is under control. We will continue with same management. 7. Disposition. We will continue to monitor this patient closely. cc: Rafael Mina MD MTDD
[2019-01-21] MEDS: ALBUTEROL NEB INH PRN (16:27)
[2019-01-21] MEDS: LEVAQUIN 250 MG/D5W 250 MG/50 ML IVPB IV SCH (20:00)
[2019-01-21] MEDS: SODIUM CHLORIDE 0.9% INJ SCH (21:21)
[2019-01-21] MEDS: PROTONIX IV SCH (21:21)
[2019-01-22] MEDS: NS 1,000 ML IV SCH ×3 (04:03→19:51)
[2019-01-22] MEDS: FLAGYL 500 MG/NS 500 MG/100 ML IVPB IV SCH ×3 (04:03→21:32)
[2019-01-22] MEDS: DILAUDID IV PRN ×2 (06:06→15:35)
[2019-01-22] MEDS: ALBUTEROL NEB INH PRN ×3 (07:41→15:15)
[2019-01-22 07:51] LABS: BASO# 0.02 X1000 (0.0-0.2); BASO% 0.3 % (0.0-0.8); EOS# 0.19 X1000 (0.0-0.7); EOS% 2.8 % (0.0-10.0); HEMATOCRIT 29.9 % (37.0-47.0); HEMOGLOBIN 8.5 g/dL (12.0-16.0); IMM GRAN# 0.05 X1000 (0.0-0.04); IMM GRAN% 0.7 % (0.0-0.5); LYMPH# 0.69 X1000 (1.2-3.4); LYMPH% 10.1 % (20.5-51.1); MCH 21.9 PG (27-31); MCHC 28.4 g/dL (33-37); MCV 77.1 FL (81-99); MONO# 0.53 X1000 (0.11-0.59); MONO% 7.8 % (1.7-9.3); MPV 10.6 FL (7.4-10.4); NEUT# 5.33 X1000 (1.4-6.5); NEUT% 78.3 % (42.2-75.2); PLT 459 X1000 (130-400); RBC 3.88 XMIL (4.2-5.4); RDW 21.8 % (11.5-14.5); WBC 6.81 X1000 (4.8-10.8)
[2019-01-22 08:03] LABS: AGAP 12; ALBUMIN 2.8 g/dL (3.5-5.0); BUN 4 mg/dL (8-22); CALCIUM 7.7 mg/dL (8.8-10.2); CHLORIDE 107 mmol/L (98-107); COSMO 270; CREATININE 0.9 mg/dL (0.5-0.9); ESTIMATED GFR > 60; GLUCOSE 82 mg/dL (70-104); PHOSPHORUS 2.4 mg/dL (2.7-4.5); POTASSIUM 3.5 mmol/L (3.5-5.1); SODIUM 137 mmol/L (136-145); TCO2 18 mmol/L (25-35)
--- NOTE | 2019-01-22 08:20 | PROGRESS NOTE ---
DATE: 01/22/2019 SUBJECTIVE: Patient reports feeling better, less weak. Abdominal pain is getting better as well. OBJECTIVE: Vital Signs: Temperature 98.1, heart rate 75, respiratory rate 16, blood pressure 131/55, O2 saturation 97% on 2 L nasal cannula. General Examination: This is a chronically ill- appearing, 73-year-old, female lying in bed, in no acute distress. Cardiovascular Examination: S1 and S2 heard. No murmurs, gallops, or rubs. Regular rate and rhythm. Respiratory Examination: Clear bilaterally to auscultation. No work of breathing. Not using accessory muscles. Abdomen: Soft, nontender to palpation. Bowel sounds present. No organomegaly. Extremities: No clubbing, cyanosis, or edema. Peripheral pulses present in both legs. Neurological Examination: The patient is alert and oriented x3. Moves 4 extremities. Laboratory Data: The hemoglobin today is 8.5. The BMP is still pending. ASSESSMENT AND PLAN: 1. Extensive severe colitis. We will continue with metronidazole and levofloxacin. Clinically, she is feeling better. White cell count is back to normal so we will continue with the same management. 2. Bibasilar pneumonia. We will continue with Levaquin. Currently requiring 2 L of oxygen by nasal cannula. We will continue with the same management. 3. Iron deficiency anemia versus anemia of blood loss. We needed to transfuse 2 units of blood to this patient because her hemoglobin reached 6.8. Today, it is 8.5. Considering that she has received 2 units of blood a few days ago and 2 units yesterday, we will check with gastroenterology tomorrow if they are planning to do any procedure like endoscopy or not. We will follow recommendations. 4. Acute kidney injury, resolved after intravenous fluids. 5. Hypertension. Blood pressure is under control. We will continue with the same management. 6. Disposition. We will continue to monitor this patient closely. cc: Rafael Mina MD
[2019-01-22] MEDS: ZOFRAN IV PRN (15:34)
[2019-01-22] MEDS: LEVAQUIN 250 MG/D5W 250 MG/50 ML IVPB IV SCH (19:46)
[2019-01-22] MEDS: SODIUM CHLORIDE 0.9% INJ SCH (21:32)
[2019-01-22] MEDS: PROTONIX IV SCH (21:32)
[2019-01-23] MEDS: FLAGYL 500 MG/NS 500 MG/100 ML IVPB IV SCH ×3 (05:15→23:52)
[2019-01-23] MEDS: NS 1,000 ML IV SCH ×4 (05:15→23:52)
[2019-01-23 07:46] LABS: AGAP 14; ALBUMIN 3.1 g/dL (3.5-5.0); BUN 3 mg/dL (8-22); CALCIUM 7.7 mg/dL (8.8-10.2); CHLORIDE 103 mmol/L (98-107); COSMO 270; CREATININE 0.8 mg/dL (0.5-0.9); ESTIMATED GFR > 60; GLUCOSE 95 mg/dL (70-104); PHOSPHORUS 1.9 mg/dL (2.7-4.5); POTASSIUM 3.4 mmol/L (3.5-5.1); SODIUM 137 mmol/L (136-145); TCO2 20 mmol/L (25-35)
[2019-01-23 07:53] LABS: BASO# 0.04 X1000 (0.0-0.2); BASO% 0.6 % (0.0-0.8); EOS# 0.14 X1000 (0.0-0.7); EOS% 2.1 % (0.0-10.0); HEMATOCRIT 31.6 % (37.0-47.0); HEMOGLOBIN 9.3 g/dL (12.0-16.0); IMM GRAN# 0.05 X1000 (0.0-0.04); IMM GRAN% 0.7 % (0.0-0.5); LYMPH% 10.3 % (20.5-51.1); MCH 22.3 PG (27-31); MCHC 29.4 g/dL (33-37); MCV 75.8 FL (81-99); MONO# 0.69 X1000 (0.11-0.59); MONO% 10.2 % (1.7-9.3); MPV 10.5 FL (7.4-10.4); NEUT# 5.15 X1000 (1.4-6.5); NEUT% 76.1 % (42.2-75.2); PLT 467 X1000 (130-400); RBC 4.17 XMIL (4.2-5.4); RDW 22.3 % (11.5-14.5); WBC 6.77 X1000 (4.8-10.8)
[2019-01-23 08:12] LABS: ANISOCYTOSIS 2+; BANDS 2 % (0-1); EOS 2 % (1-10); HYPOCHROM 2+; LYMPHS 12 % (21-51); MONO 6 % (1-9); SEGS 74 % (42-75)
[2019-01-23] MEDS: ALBUTEROL NEB INH PRN (08:22)
[2019-01-23] MEDS: ZOFRAN IV PRN ×2 (11:23→22:34)
[2019-01-23] MEDS: DILAUDID IV PRN ×2 (11:23→15:56)
[2019-01-23] MEDS ORDERED: MAGNESIUM SULFATE 2 GM/S.W.I. 2 GM/50 ML IVPB IV ONE (12:07)
[2019-01-23] MEDS ORDERED: POTASSIUM PHOSPHATE 40 MEQ in NS 250 ML IV ONE (19:15)
--- NOTE | 2019-01-23 19:32 | PROGRESS NOTE ---
DATE: 01/23/2019 SUBJECTIVE: Patient has no major complaints. OBJECTIVE: Vital signs: Blood pressure 138/62, heart rate of 90, respiratory rate 18, temperature 98.2 degrees, 99% on room air. Cardiovascular: Regular rate and rhythm. Pulmonary: Bilateral breath sounds. Clear to auscultation. GI: Was soft, nontender. LABORATORIES: White count is 6, hemoglobin and hematocrit 9 and 31, platelets 467,000, potassium 3.45, phos 1.9. PROBLEM LIST: 1. Severe colitis. She is on Levaquin and Flagyl and seems to be somewhat better. All stool studies have been negative. She has an E coli urinary tract infection, but it is sensitive to Levaquin. 2. Bibasilar pneumonia which she was not really completely clear that was a diagnosis. Her chest x-ray shows no pneumonia. The CT shows nonspecific atelectasis versus infiltrate, so she may not actually have a true pneumonia, but she does need to start getting up and around. 3. Anemia, unclear etiology. She was asking about autoimmune causes. Her iron studies are low consistent with iron-deficiency anemia. B12 and folate were normal. There are no other indicators of hemolysis. This is a microcytic anemia though. DISPOSITION: Pending clinical status, anticipate discharge soon, but at the discretion of GI. I am not sure if they are planning to do anything else at this point. We do need to see about getting her up a little bit. cc: Blaise Acosta MD
--- NOTE | 2019-01-23 19:35 | GASTROENTEROLOGY PROGRESS NOTE ---
DATE: 01/23/2019 SUBJECTIVE: Patient still reports some diarrhea per nurse report. There has been no evidence of active GI bleeding. Patient did require 2 units of packed red blood cells over the weekend. Patient currently has O2 by nasal cannula in place. She is tolerating a liquid diet. She does believe she may be able to tolerate some solid food. OBJECTIVE: Vital Signs: Temperature 98.2 degrees, pulse 90, respirations 18, blood pressure 138/62. Generally: Patient is awake and alert. No acute distress. Abdomen: Soft, nontender. Positive bowel sounds. LABORATORY: Hematology: WBCs 6.77, hemoglobin 9.3, hematocrit 31.6. MCV 75.8, platelets 467,000. Chemistry: Sodium 137, potassium 3.4, chloride 103, CO2 20, BUN 3, creatinine 0.8, glucose 95, calcium 7.7. ASSESSMENT AND PLAN: 1. Extensive colitis continue on antibiotics. We will try and advanced her diet. 2. Pneumonia. Patient on antibiotics. She is currently requiring 2 L of oxygen by nasal cannula. 3. Iron-deficiency anemia. Would recommend workup, but would prefer for her colitis to resolve and other respiratory issues to improve before proceeding. Dr. Rockwell recommends following as an outpatient for endoscopy procedures. We will continue to follow during her hospital course and further plans will be made as needed. Again, I have discussed this case with Dr. Rockwell. Dictated by KRUNAL Koehler for Joe Rockwell MD cc: KRUNAL Gibson MD
[2019-01-23] MEDS: SODIUM CHLORIDE 0.9% INJ SCH (20:59)
[2019-01-23] MEDS: LEVAQUIN 250 MG/D5W 250 MG/50 ML IVPB IV SCH (20:59)
[2019-01-23] MEDS: PROTONIX IV SCH (20:59)
[2019-01-24] MEDS: DILAUDID IV PRN ×3 (00:02→21:57)
[2019-01-24] MEDS ORDERED: TYLENOL PO PRN (00:17)
[2019-01-24] MEDS: NS 1,000 ML IV SCH (06:07)
[2019-01-24 07:10] LABS: BASO# 0.02 X1000 (0.0-0.2); BASO% 0.3 % (0.0-0.8); EOS# 0.26 X1000 (0.0-0.7); EOS% 3.9 % (0.0-10.0); HEMATOCRIT 31.2 % (37.0-47.0); HEMOGLOBIN 9.1 g/dL (12.0-16.0); IMM GRAN# 0.04 X1000 (0.0-0.04); IMM GRAN% 0.6 % (0.0-0.5); LYMPH# 0.87 X1000 (1.2-3.4); MCH 21.9 PG (27-31); MCHC 29.2 g/dL (33-37); MONO# 0.64 X1000 (0.11-0.59); MONO% 9.6 % (1.7-9.3); MPV 10.8 FL (7.4-10.4); NEUT# 4.85 X1000 (1.4-6.5); NEUT% 72.6 % (42.2-75.2); PLT 436 X1000 (130-400); RBC 4.16 XMIL (4.2-5.4); RDW 22.5 % (11.5-14.5); WBC 6.68 X1000 (4.8-10.8)
[2019-01-24 07:26] LABS: AGAP 12; BUN 4 mg/dL (8-22); CALCIUM 7.2 mg/dL (8.8-10.2); CHLORIDE 104 mmol/L (98-107); COSMO 274; CREATININE 0.8 mg/dL (0.5-0.9); ESTIMATED GFR > 60; GLUCOSE 94 mg/dL (70-104); POTASSIUM 3.9 mmol/L (3.5-5.1); SODIUM 139 mmol/L (136-145); TCO2 23 mmol/L (25-35)
[2019-01-24] MEDS: FLAGYL 500 MG/NS 500 MG/100 ML IVPB IV SCH ×2 (09:04→18:56)
[2019-01-24] MEDS: ZOFRAN IV PRN (10:47)
--- NOTE | 2019-01-24 14:55 | PROGRESS NOTE ---
DATE: 01/24/2019 SUBJECTIVE: Patient reports feeling very weak. No nausea or vomiting. OBJECTIVE: Vital Signs: Temperature 99.3 degrees, heart rate 88, respiratory rate 18, blood pressure 149/80, O2 saturation 99% on 2 L nasal cannula. General: This is a chronically ill- appearing, 73-year-old female lying in bed, in no acute distress. Cardiovascular: S1, S2 heard. No murmurs, gallops, or rubs. Regular rate and rhythm. Respiratory: Clear bilaterally to auscultation. No work of breathing or using accessory muscles. Abdomen: Soft. Nontender to palpation. Bowel sounds present. No organomegaly. Extremities: No clubbing, cyanosis, or edema. Peripheral pulses present in both legs. Neurological: Patient is alert and oriented x3. Moves 4 extremities. LABORATORY DATA: Hemoglobin is 9.1 today. ASSESSMENT AND PLAN: 1. Extensive severe colitis. Patient is receiving metronidazole and levofloxacin. Clinically this patient is stable. At this point, we will continue with the same management. 2. Bibasilar pneumonia. Patient is on Levaquin. Requiring 2 L of oxygen by nasal cannula. We will continue with the same management. 3. Iron deficiency anemia versus anemia of blood loss. After 2 units of blood hemoglobin is much more stable. GI is planning to do the procedure as an outpatient. No inpatient EGD required. We will continue to monitor. 4. Acute kidney injury, resolved. 5. Hypertension. Blood pressure is under control. We will continue with the same management. 6. Disposition. The patient is very weak and she requests to be sent to a rehab facility, so we will consult [employer]. Physical therapy is working with this patient now. cc: Rafael Mina MD [facility]
--- NOTE | 2019-01-24 18:01 | GASTROENTEROLOGY PROGRESS NOTE ---
DATE: 01/24/2019 Patient was asleep at that time on my evaluation. She aroused easily, she denies complaint. She has tolerated a GI soft diet since yesterday afternoon, there is no evidence of active GI bleeding. Per intake and output report she is having soft brown stool. OBJECTIVE: Vital Signs: Temperature 99.3 degrees, pulse 88, respirations 18, blood pressure 149/80. General: Patient awake, alert, no acute distress. Abdomen: Soft, nontender, positive bowel sounds. LABORATORY: Hematology. WBC 6.68, hemoglobin 9.1, hematocrit 31.2, MCV 75.0, platelet 436,000. Chemistry, sodium 139, potassium 3.9, chloride 104, CO2 of 23, BUN 4, creatinine 0.8, glucose 94. ASSESSMENT AND PLAN: 1. Severe colitis. Patient is on antibiotics, Levaquin and Flagyl. Her diarrhea has improved. No evidence of active gastrointestinal bleeding. 2. Anemia. Patient has received 1 unit of packed red blood cells since her admission. She did require transfusion of packed red blood cells during a previous hospitalization. Would recommend GI workup but recommend waiting until colitis has resolved. Also she has had some respiratory issues requiring oxygen, would recommend improvement in her respiratory status before proceeding with sedation. I have recommended she follow up with us in the office after discharge and we can plan for endoscopic evaluation for her anemia as an outpatient. I have given her contact information to make an appointment. I have discussed this case with Dr. Rockwell. Dictated by KRUNAL Koehler for Joe Rockwell MD cc: KRUNAL Gibson MD
[2019-01-24] MEDS: SODIUM CHLORIDE 0.9% INJ SCH (20:34)
[2019-01-24] MEDS: LEVAQUIN 250 MG/D5W 250 MG/50 ML IVPB IV SCH (20:34)
[2019-01-24] MEDS: PROTONIX IV SCH (20:34)
[2019-01-25] MEDS: FLAGYL 500 MG/NS 500 MG/100 ML IVPB IV SCH ×5 (00:55→23:02)
[2019-01-25] MEDS: PROTONIX IV SCH ×2 (00:57→19:59)
[2019-01-25] MEDS: NS 1,000 ML IV SCH ×3 (02:39→23:02)
[2019-01-25] MEDS: ZOFRAN IV PRN ×3 (02:45→19:59)
[2019-01-25] MEDS: DILAUDID IV PRN ×2 (02:45→10:21)
[2019-01-25 07:21] LABS: BASO# 0.02 X1000 (0.0-0.2); BASO% 0.3 % (0.0-0.8); EOS# 0.29 X1000 (0.0-0.7); EOS% 4.8 % (0.0-10.0); HEMATOCRIT 30.3 % (37.0-47.0); HEMOGLOBIN 8.7 g/dL (12.0-16.0); IMM GRAN# 0.03 X1000 (0.0-0.04); IMM GRAN% 0.5 % (0.0-0.5); LYMPH# 0.85 X1000 (1.2-3.4); LYMPH% 14.1 % (20.5-51.1); MCH 21.7 PG (27-31); MCHC 28.7 g/dL (33-37); MCV 75.6 FL (81-99); MONO% 9.9 % (1.7-9.3); MPV 10.6 FL (7.4-10.4); NEUT# 4.25 X1000 (1.4-6.5); NEUT% 70.4 % (42.2-75.2); PLT 407 X1000 (130-400); RBC 4.01 XMIL (4.2-5.4); RDW 22.7 % (11.5-14.5); WBC 6.04 X1000 (4.8-10.8)
[2019-01-25 07:44] LABS: AGAP 4; BUN 5 mg/dL (8-22); CALCIUM 7.8 mg/dL (8.8-10.2); CHLORIDE 101 mmol/L (98-107); COSMO 265; CREATININE 0.8 mg/dL (0.5-0.9); ESTIMATED GFR > 60; GLUCOSE 93 mg/dL (70-104); POTASSIUM 3.5 mmol/L (3.5-5.1); SODIUM 134 mmol/L (136-145); TCO2 29 mmol/L (25-35)
[2019-01-25] MEDS: ALBUTEROL NEB INH PRN ×2 (08:11→23:24)
--- NOTE | 2019-01-25 14:47 | PROGRESS NOTE ---
DATE: 01/25/2019 SUBJECTIVE: The patient reports feeling fine. Denies any fever or chills. OBJECTIVE: Vital Signs: Temperature 98.8 degrees, heart rate 99, respiratory rate 16, blood pressure 162/76, O2 saturation 95% on 3 L nasal cannula. General: This is a chronically ill- appearing and frail, 74-year-old, female, lying in bed in no acute distress. Cardiovascular: S1, S2 heard. No murmurs, gallops, or rubs. Regular rate and rhythm. Respiratory: Clear bilaterally to auscultation. No work of breathing or using accessory muscles. Abdomen: Soft, tender to palpation. Bowel sounds present. No organomegaly. Extremities: No clubbing, cyanosis, or edema. Peripheral pulses present in both legs. Neurological: The patient is alert and oriented x3. Moves all 4 extremities. LABORATORY DATA: Reviewed. ASSESSMENT AND PLAN: 1. Extensive colitis. The patient continues to be on levofloxacin and metronidazole. Clinically, this patient is doing fine. Will continue with the same management. 2. Bibasilar pneumonia. The patient reports having still some cough. Will continue with Levaquin. Will continue with oxygen supplementation. 3. Iron-deficiency anemia. Hemoglobin continues to be stable after 2 units of blood. Will continue to monitor. 4. Acute kidney injury, resolved. 5. Hypertension. Blood pressure is under control. Will continue with the same management. 6. Disposition. At this point, the patient is stable, working with Physical and Occupational Therapy. Plan is to send this patient to a rehab facility once we have a bed for her. cc: Rafael Mina MD
[2019-01-25] MEDS: LEVAQUIN 250 MG/D5W 250 MG/50 ML IVPB IV SCH (20:03)
--- NOTE | 2019-01-25 20:03 | GASTROENTEROLOGY PROGRESS NOTE ---
DATE: 01/25/2019 SUBJECTIVE: Patient states she is tired. She states she was up a lot during the night coughing. I believes there are plans for her to go to rehab after discharge. OBJECTIVE: Vital Signs: Temperature 98.8 degrees, pulse 99, respirations 16, blood pressure 162/76. General: Patient is awake, alert, in no acute distress. LABORATORY: Hematology: WBC 6.04, hemoglobin 8.7, hematocrit 30.3, MCV 76.6, platelets 407,000. Chemistry: Sodium 134, potassium 3.5, chloride 101, CO2 of 29, BUN 5, creatinine 0.8, glucose 93, calcium 7.8, phosphorus 2.3. ASSESSMENT AND PLAN: 1. Severe colitis. On antibiotics. 2. Pneumonia. On antibiotics. Patient has required oxygen. Currently at the time of my evaluation, she did not have oxygen in place. Seemed to be tolerating well. 3. Iron deficiency anemia. She has required blood transfusions. Gastroenterology recommending waiting on her colitis to resolve and respiratory symptoms to improve before proceeding with endoscopy. I have given her contact information to call and make an appointment in our office, and further plans to be made about scheduling endoscopy procedures. I have discussed this case with Dr. Rockwell. Dictated by KRUNAL Koehler for Joe Rockwell MD cc: KRUNAL Gibson MD
[2019-01-26] MEDS: DILAUDID IV PRN ×2 (00:15→15:44)
[2019-01-26] MEDS: ALBUTEROL NEB INH PRN ×2 (03:41→21:30)
[2019-01-26 06:43] LABS: BASO# 0.03 X1000 (0.0-0.2); BASO% 0.5 % (0.0-0.8); EOS# 0.05 X1000 (0.0-0.7); EOS% 0.8 % (0.0-10.0); HEMATOCRIT 29.9 % (37.0-47.0); HEMOGLOBIN 8.8 g/dL (12.0-16.0); IMM GRAN# 0.03 X1000 (0.0-0.04); IMM GRAN% 0.5 % (0.0-0.5); LYMPH# 0.66 X1000 (1.2-3.4); LYMPH% 11.2 % (20.5-51.1); MCH 22.1 PG (27-31); MCHC 29.4 g/dL (33-37); MCV 75.1 FL (81-99); MONO# 0.61 X1000 (0.11-0.59); MONO% 10.4 % (1.7-9.3); MPV 10.8 FL (7.4-10.4); NEUT# 4.51 X1000 (1.4-6.5); NEUT% 76.6 % (42.2-75.2); PLT 416 X1000 (130-400); RBC 3.98 XMIL (4.2-5.4); RDW 23.2 % (11.5-14.5); WBC 5.89 X1000 (4.8-10.8)
[2019-01-26 07:14] LABS: LYMPHS 22 % (21-51); SEGS 76 % (42-75)
[2019-01-26 07:26] LABS: AGAP 12; BUN 6 mg/dL (8-22); CALCIUM 7.8 mg/dL (8.8-10.2); CHLORIDE 101 mmol/L (98-107); COSMO 272; CREATININE 0.9 mg/dL (0.5-0.9); ESTIMATED GFR > 60; GLUCOSE 104 mg/dL (70-104); POTASSIUM 3.2 mmol/L (3.5-5.1); SODIUM 137 mmol/L (136-145); TCO2 24 mmol/L (25-35)
[2019-01-26] MEDS: PROTONIX IV SCH ×2 (08:33→22:36)
[2019-01-26] MEDS: FLAGYL 500 MG/NS 500 MG/100 ML IVPB IV SCH ×3 (10:00→22:36)
[2019-01-26] MEDS ORDERED: KLOR-CON PO ONE (10:13)
--- NOTE | 2019-01-26 12:16 | PROGRESS NOTE ---
DATE: 01/26/2019 SUBJECTIVE: Patient reports feeling fine. Denies any fever, chills, nausea or vomiting. OBJECTIVE: Vital Signs: Temperature 97.9 degrees, heart rate 87, respiratory rate 20, blood pressure 165/72, O2 saturation 97% on room air. General Examination: This is a chronically ill appearing and frail, 74-year-old female, lying in bed in no acute distress. Cardiovascular exam: S1, S2 heard. No murmurs, gallops, or rubs. Regular rate and rhythm. Respiratory exam: Clear bilaterally to auscultation. No work of breathing or using accessory muscles. Abdomen: Soft, nontender to palpation. Bowel sounds present. No organomegaly. Extremities: No clubbing, cyanosis or edema. Peripheral pulses present in both legs. Neurological exam: Patient is alert and oriented x3. Moves 4 extremities. LABORATORY DATA: Reviewed. ASSESSMENT AND PLAN: 1. Extensive colitis. Clinically, this patient is doing good. No nausea and vomiting. White cell count is back to normal. We have adjusted the dose of Levaquin to his normal renal function now; today is day #8 of treatment. We will continue with the same management. 2. Bibasilar pneumonia. Mild cough is getting better. We will continue to monitor. 3. Iron deficiency anemia. Hemoglobin is stable after transfusing 2 units of blood. Gastroenterology is following this patient and patient will be seen for outpatient esophagogastroduodenoscopy. 4. Acute kidney injury, resolved. 5. Hypertension. Blood pressure is under control. We will continue with the same management. 6. Disposition: At this point, patient is medically stable. We are awaiting rehabilitation bed for her. Physical therapy and outpatient therapy working with that patient. cc: Rafael Mina MD
[2019-01-26] MEDS: NS 1,000 ML IV SCH (15:21)
[2019-01-26] MEDS ORDERED: LEVAQUIN 500 MG/D5W 500 MG/100 ML IVPB IV SCH (17:00)
[2019-01-27] MEDS: ZOFRAN IV PRN (00:50)
[2019-01-27] MEDS: DILAUDID IV PRN (00:50)
[2019-01-27 06:31] LABS: BASO# 0.03 X1000 (0.0-0.2); BASO% 0.5 % (0.0-0.8); EOS# 0.14 X1000 (0.0-0.7); EOS% 2.5 % (0.0-10.0); HEMATOCRIT 29.4 % (37.0-47.0); HEMOGLOBIN 8.7 g/dL (12.0-16.0); IMM GRAN# 0.03 X1000 (0.0-0.04); IMM GRAN% 0.5 % (0.0-0.5); LYMPH# 0.69 X1000 (1.2-3.4); LYMPH% 12.1 % (20.5-51.1); MCH 22.1 PG (27-31); MCHC 29.6 g/dL (33-37); MCV 74.6 FL (81-99); MONO# 0.66 X1000 (0.11-0.59); MONO% 11.6 % (1.7-9.3); MPV 10.8 FL (7.4-10.4); NEUT# 4.16 X1000 (1.4-6.5); NEUT% 72.8 % (42.2-75.2); PLT 394 X1000 (130-400); RBC 3.94 XMIL (4.2-5.4); RDW 23.2 % (11.5-14.5); WBC 5.71 X1000 (4.8-10.8)
[2019-01-27 06:46] LABS: AGAP 13; BUN 6 mg/dL (8-22); CALCIUM 8.1 mg/dL (8.8-10.2); CHLORIDE 101 mmol/L (98-107); COSMO 270; CREATININE 0.8 mg/dL (0.5-0.9); ESTIMATED GFR > 60; GLUCOSE 100 mg/dL (70-104); POTASSIUM 3.8 mmol/L (3.5-5.1); SODIUM 136 mmol/L (136-145); TCO2 22 mmol/L (25-35)
[2019-01-27] MEDS: ALBUTEROL NEB INH PRN (07:34)
[2019-01-27] MEDS: FLAGYL 500 MG/NS 500 MG/100 ML IVPB IV SCH ×2 (09:14→09:20)
[2019-01-27 12:17] VITALS: BP 156/78
[2019-01-27] MEDS: NS 1,000 ML IV SCH (12:51)
--- NOTE | 2019-01-27 17:45 | DISCHARGE SUMMARY ---
ADMISSION DATE: 01/19/2019 DISCHARGE DATE: 01/27/2019 ADMISSION DIAGNOSES: 1. Extensive severe colitis. 2. Probable pneumonia. 3. Probable urinary tract infection. 4. Non anion gap metabolic acidosis. 5. Acute kidney injury. 6. Iron deficiency anemia. 7. Hypertension. DISCHARGE DIAGNOSES: 1. Extensive colitis. 2. Bibasilar pneumonia. 3. Iron deficiency anemia. 4. Acute kidney injury, resolved. 5. Hypertension. CONSULTATIONS: Dr. Rockwell. SURGERIES/PROCEDURES: None. HOSPITAL COURSE: Ms. Dorie Gonzalez is a 73-year-old female with a medical history of iron deficiency anemia and peptic ulcer disease, presented to the emergency department with diarrhea that had been ongoing for at least a month. Apparently she had several bowel movements for 24 hours prior to presentation, at least 30 or more. Denied any hematochezia. Denied vomiting. Some slight abdominal pains. No fever. She had a recent hospitalization with iron deficiency anemia diagnosis and received two units of blood then. She was discharged and supposed to follow up with GI and Oncology. She had a CT scan performed which showed extensive severe colitis with some infiltrates in the lower lobes. Clostridium difficile was sent which was negative. She had a dirty urinalysis, came back with E coli UTI, resistant to ampicillin, indeterminate against cefazolin and ampicillin sulbactam. All other microbiology was negative. She was started on antibiotic therapy for the bibasilar infiltrates/pneumonia and also for the urinary tract infection. She had acute kidney injury but that improved with IV fluid hydration and avoid nephrotoxic agents. She was continued on her iron for her iron deficiency anemia. For her hypertension she was continued on her antihypertensive regimen. Gastroenterology was consulted due to the severe colitis and the diarrhea. Recommendations was to transfuse blood as needed and not to proceed with any type of endoscopy. It was felt that antibiotics would help clear up this infectious diarrhea. During this stay she did end up getting one unit of packed red blood cells on 01/21/2019, so the day after admission. Vital signs remained stable. She is okay for discharge home with home health. DISCHARGE VITAL SIGNS: Temperature 98.9 degrees, heart rate 103, respiratory rate 20, blood pressure 139/65, O2 saturation 93% on room air. DISCHARGE LABORATORY DATA: White blood cell count 5000, hemoglobin 8, hematocrit 29, platelet count 394,000. Sodium 136, potassium 3.8, BUN 8, creatinine 0.8. Glucose 100. Calcium 8.1. Phosphorus 2.4. IMAGING: Chest x-ray showed no pneumonia. Abdominopelvic CT showed extensive severe colitis, bibasilar infiltrates. DISCHARGE MEDICATIONS: 1. Lisinopril 10 mg p.o. daily. 2. Flagyl 500 mg p.o. twice daily. 3. Icar-C one tablet p.o. twice daily. 4. Levaquin 500 mg p.o. daily. 5. Idalia 5 one tablet p.o. every four hours p.r.n. 6. Prevacid 30 mg p.o. twice daily. DISCHARGE DIET: GI soft. DISCHARGE ACTIVITY: As tolerated. PHYSICIAN FOLLOWUP: Dr. Rockwell and Dr. Pritesh Haji. DISCHARGE INSTRUCTIONS: If your condition changes, contact physician and/or return to the emergency department. Changes may include, but are not limited, to shortness of breath, increased fatigue, excessive bleeding, unexplained weight loss or gain, unmanageable pain, signs or symptoms of infection. Notify physician for fever of 101 or above, shortness of breath, chest pain, foul- smelling urine, pus in the urine, difficulty urinating, or uncontrolled nausea or vomiting. DISCHARGE DISPOSITION: Home with [facility]. Dictated by KRUNAL Appiah for Rafael Mina MD Addendum: Patient seen and examined by myself. Agree with KRUNAL note. It reflects my assessment and plan. Patient is being discharged in stable condition. Will be followed up by [facility]. cc: KRUNAL Appiah MD [facility]
== END 2019-01-27 16:42 | disposition home health service (06) | DRG 682 ==
LOC: SUPCPDRO → ED 14:51 → SUATTDRO 21:44 → 4N 21:44
PROVIDERS: ATTEND Internal Medicine